=== PATIENT | male | born 1950 | race Caucasian/White ===

== ENCOUNTER 2018-03-06 11:26 | Emergency (ER) | payer OTHER, SELFPAY ==
[2018-03-06 11:27] VITALS: BP 153/57; PULSE 35; RESP 16; TEMP 36.9; O2SAT 95
[2018-03-06 11:45] VITALS: BP 185/80; PULSE 35; RESP 14; O2SAT 99
--- NOTE | 2018-03-06 11:47 | CT_ITS ---
STUDY: CT BRAIN WITHOUT CONTRAST REASON FOR EXAM: Male, 67 years old. Vertigo, headache, bradycardia RADIATION DOSAGE (If Supplied By Facility): CTDIvol = ( 60.81 ) mGy, DLP = ( 1044.28 ) mGycm TECHNIQUE: Transaxial CT imaging of the brain was performed without administration of intravenous contrast material. Sagittal and coronal reconstructed images are provided and reviewed. Individualized dose optimization techniques were used for this CT. COMPARISON: None. FINDINGS: Vascular calcifications are seen. Normal calvarium. Normal size ventricles and extra-axial spaces for the patient's age. Normal white matter tracts of the cerebral hemispheres. There are small punctate calcifications of the basal ganglia which are seen in the aging brain as a normal variant. Normal brainstem. Normal cerebellum. There is no intracranial hemorrhage. There are no findings of an acute ischemic infarction. Normal visualized paranasal sinuses. CT/Brain/Head without Contrast IMPRESSION: Chronic involutional changes. No acute intracranial abnormality. Electronically Signed: Derek Velasquez DO at 12:40 EDT Tel , Service support ,
--- NOTE | 2018-03-06 11:47 | EKG12_ITS ---
Test Reason : Blood Pressure : / mmHG Vent. Rate : 064 BPM Atrial Rate : 064 BPM P-R Int : 162 ms QRS Dur : 076 ms QT Int : 428 ms P-R-T Axes : 053 -24 027 degrees QTc Int : 441 ms Sinus rhythm with frequent Premature ventricular complexes Leftward axis Confirmed by JESSICA ENCARNACION, DAVIN ([id number]), field map editor MELLY NEGRO ([id number]) on 03/09/2018 9:49:48 AM Referred By: YENI Confirmed By:DAVIN LOPEZ MD
--- NOTE | 2018-03-06 11:47 | RAD_ITS ---
STUDY: X-RAY CHEST REASON FOR EXAM: Male, 67 years old. 3 day history of dizziness and palpitations. TECHNIQUE: Single AP portable view of the chest. COMPARISON: None. FINDINGS: EKG electrodes are seen. The lungs are clear and expanded. There is no demonstrated pleural abnormality. Normal size heart. Normal mediastinum and fatou. Normal visualized pulmonary arteries. Normal visualized aortic arch and descending thoracic aorta. There are diffuse degenerative changes of the visualized thoracic spine. Normal visualized ribs, clavicles, and shoulders. There is no demonstrated abnormality of the visualized soft tissue structures of the upper abdomen. RAD/Chest 1 View (Portable) IMPRESSION: No acute abnormality is seen. Electronically Signed: Didier Khan MD at 12:32 EDT Tel [phone], Service support ,
[2018-03-06] MEDS: 0.9% Normal Saline 1,000 ML 150 ML IV (12:01)
[2018-03-06 12:06] LABS: Absolute Lymphocyte Count 3.36 X10^3/ul (0.83-4.51); Basophil# 0.06 X10^3/uL; Basophil% 0.8 % (0-1); Eosinophil# 0.16 X10^3/uL; Eosinophils% 2.2 % (0-5); Hematocrit 47.2 % (40-54); Hemoglobin 16.6 g/dl (13.0-16.5); Lymphocyte # 3.36 X10^3/ul (4.0); Lymphocyte % 46.3 % (19-41); Mean Corp Hgb Conc 35.2 g/gl (32-36); Mean Corpuscular Hgb 31.6 pg (27.0-32.0); Mean Corpuscular Volume 89.9 fL (80-94); Mean Platelet Vol. 10.8 fl (6.2-12.0); Monocyte# 0.69 X10^3/uL; Monocyte% 9.5 % (0-10); Neutrophil # 2.99 X10^3/uL (2.7-7.7); Neutrophil % 41.2 % (47-70); Platelet Count 201 K/mm3 (150-450); RBC Distribution Width CV 13.7 % (11.6-14.6); RBC Distribution Width SD 44.3 fl (35.1-43.9); Red Blood Count 5.25 M/mm3 (4.6-6.2); White Blood Count 7.3 K/mm3 (4.4-11.0)
[2018-03-06 12:08] LABS: POSITIVE COUNT NO; POSITIVE DIFFERENTIAL NO; POSITIVE MORPHOLOGY NO
[2018-03-06 12:40] LABS: Anion Gap 10 (5-15); BUN 15 mg/dL (7-18); BUN/Creat Ratio 14.2 RATIO (10-20); Calcium,Total 8.9 mg/dL (8.5-10.1); Chloride 107 mmol/L (98-107); Creatinine, Serum 1.06 mg/dL (0.70-1.30); EST Glomerular Filtration Rate 74 mL/min (>60); Est Glom Filt Rate - Afr Amer 90 mL/min (>60); Estimated Creatinine Clearance 72.02 ml/min; Glucose 94 mg/dL (74-106); Magnesium 2.2 mg/dL (1.6-2.6); Potassium 4.8 mmol/L (3.5-5.1); Sodium Level 143 mmol/L (136-145); Thyroid Stim Hormone (TSH) 2.01 uIU/mL (0.358-3.74)
--- NOTE | 2018-03-06 13:08 | EKG12_ITS ---
Test Reason : Blood Pressure : / mmHG Vent. Rate : 067 BPM Atrial Rate : 067 BPM P-R Int : 156 ms QRS Dur : 080 ms QT Int : 458 ms P-R-T Axes : 050 -30 028 degrees QTc Int : 483 ms Sinus rhythm with frequent Premature ventricular complexes Left axis deviation Nonspecific ST abnormality Prolonged QT Abnormal ECG Confirmed by JESSICA ENCARNACION, DAVIN ([id number]), photo editor MELLY NEGRO ([id number]) on 03/09/2018 9:50:07 AM Referred By: YENI Confirmed By:DAVIN LOPEZ MD
[2018-03-06 13:27] VITALS: BP 160/80; PULSE 50; RESP 14; O2SAT 99
[2018-03-06] MEDS: Aspirin 81 MG TAB.CHEW 324 MG PO (13:39)
[2018-03-06 16:06] VITALS: BP 158/80; PULSE 55; RESP 14; O2SAT 99
--- NOTE | 2018-03-06 16:11 | ED.VISSUMM ---
- ER Visit Summary Date of Service: 03/06/18 Chief Complaint: Vertigo History of Present Illness: The patient is a [address] Jonathan Bah. He reports that over the past 2 days he has had episodes of vertigo when he rolls over in bed. This lasts for a few seconds at a time. He is nauseated with them and had dry heaves from a this morning. He denies any vertigo at this time. However, he does report that he is still nauseated. Patient was seen by Dr. Bah this morning and was found to have frequent PVCs. Patient denies any chest pain. He reports that 2 days ago he was in the shower and found that his left nipple was sore. He states this lasted approximately 1 day and had completely resolved. He denies any shortness of breath or diaphoresis. He states this was unchanged with exertion or deep breaths. He denies any chest pain with exertion or change in dyspnea exertion in the past month. Patient finally complains of a headache that is 3 out of 10 severity is generalized. He does have a history of similar headaches. He denies any numbness or weakness. Physical Examination: Vitals: Stable. Afebrile. General: Well-nourished and well-developed. Head: Normocephalic atraumatic. Neck: Supple, no lymphadenopathy. No JVD. Nontender. Cardiovascular: Bradycardic regular rhythm. No murmurs. Respiratory: No respiratory distress. Clear to auscultation bilaterally. Abdominal: Soft, nontender, nondistended, normal bowel sounds. No guarding, rebound, or peritoneal signs. Back: Nontender. Extremities: Nontender, no edema. Skin: Normal color, no rash. Neurologic: Alert and oriented ?3. Cranial nerves II through XII are intact. Normal strength and sensation. Psych: Normal affect. Test Results: EKG is sinus at [address] changes. Repeat EKG is unchanged. CBC is more for her hemoglobin is 16.6, segmented neutrophils 41, lymphs at 46. Chem-7 is normal. TSH is normal. Magnesium is normal. Initial troponin is 0.145. Repeat troponin [address] brain shows chronic changes. Chest x-ray is normal. Emergency Department Course and Treatment: Patient was treated with an aspirin. He did have episodes of bigeminy while here. However he had no runs of PVCs. Treatment Plan: Patient was discussed with Dr. Wolff who asked that a 3 hour troponin be obtained. I spoke with him again after this was obtained and he would like the patient discharged 24 hour Holter monitor and he will see him this week in the office. I had a prolonged discussion the patient that if he develops any chest pain or shortness of breath to return to emerge department for admission for further evaluation. He is happy with this plan. Disposition: To home in improved and stable condition. Impression: 1. PVCs. 2. Indeterminate troponin. 3. Vertigo, peripheral. This note was generated with [employer] dictation software. It may contain incorrect words, spelling, and punctuation that were not noted in review of the chart prior to signing ED Disposition - Plan for ED Patient: Disposition: Home or Assisted Living Chief Complaint: Dizziness Instructions: Premature Ventricular Contractions Referrals: Bc Wolff MD [STAFF PHYSICIAN] - 3-5 Days
[2018-03-06 16:24] VITALS: BP 131/74; PULSE 60; RESP 17
== END 2018-03-06 16:38 | disposition home or self-care (01) ==
PROVIDERS: Emergency Provider Emergency Medicine; Family Provider Pediatrics; PCP Family Medicine
DX: I49.3 Ventricular premature depolarization (principal); H81.399 Other peripheral vertigo, unspecified ear; R74.8 Abnormal levels of other serum enzymes; R11.2 Nausea with vomiting, unspecified; R07.9 Chest pain, unspecified; R51 Headache; Z79.82 Long term (current) use of aspirin; Z79.899 Other long term (current) drug therapy
CPT/HCPCS: 70450; 71045; 80048; 83735; 84443; 84484; 85025; 93005; 93225; 93226; 96360; 96361; 99285; J7030; A4216

== ENCOUNTER → 2018-03-06 16:16 | Outpatient (CLI) | payer OTHER, SELFPAY | PROVIDERS: Family Provider Pediatrics; PCP Family Medicine; Visit Provider Emergency Medicine | DX: I49.3 Ventricular premature depolarization (principal) | CPT/HCPCS: 93225; 93226 ==

== ENCOUNTER → 2018-03-27 06:00 | Outpatient (CLI) | payer OTHER, SELFPAY ==
--- NOTE | 2018-03-27 09:11 | STRESSREP ---
Stress Test Report Exercise myocardial perfusion stress test. 67-year-old man with a history of chest pain. Medications: Simvastatin and beta-betty. Stress protocol: Resting EKG demonstrates sinus bradycardia with a rate of 56 bpm. Resting blood pressure is 150/88 mmHg. The patient also was noted to have occasional premature ventricular complexes. The patient exercised according to the regular Haroldo protocol for total duration of 8 minutes and 45 seconds completing 2 minutes and 45 seconds to stage III of the Haroldo protocol. The maximum heart rate attained was 136 bpm which was 88% of maximum predicted heart rate the maximum workload was 10.1 metabolic equivalents. At rest there were no ST or T-wave changes noted suggest ischemia peak exercise no ST or T-wave changes were noted suggest ischemia. No clinical angina was noted the test was terminated due to leg fatigue. The resting blood pressure is 150/88 with a peak blood pressure of 218/94 rate pressure product was 29,200. Myocardial perfusion protocol. 14.3 mCi of technetium 99m sestamibi was injected at rest. The patient exercised according to regular Haroldo protocol for 8 minutes 45 seconds and at peak exercise 44.6 mCi of technetium 99m sestamibi was injected stress images were obtained stress and rest images were reconstructed and compared in the short axis vertical long and horizontal long axis. Gated images were also obtained. Perfusion SPECT analysis: Review of the stress images demonstrate normal uptake of tracer noted in all areas of the myocardium. The resting images similarly demonstrate normal uptake of tracer noted in all areas of the myocardium. No areas of reversibility are noted suggest ischemia and no previous infarct is noted. Gated SPECT analysis: The gated ejection fraction is noted to be 64%. Conclusion: Normal exercise myocardial perfusion stress test at a high workload. Preserved ejection fraction. Good functional aerobic capacity.
== END ==
PROVIDERS: Family Provider Pediatrics; PCP Family Medicine; Visit Provider Internal Medicine Cardiovascular Disease
DX: I49.49 Other premature depolarization (principal); R00.2 Palpitations; R07.9 Chest pain, unspecified
CPT/HCPCS: 78452; 93017; 93306; A9500; A4216

== ENCOUNTER → 2018-04-27 10:25 | Outpatient (CLI) | payer OTHER, SELFPAY ==
[2018-04-27 10:32] LABS: Bacteria 0 SEEN /hpf (None Seen); Mucous, Urine 0 SEEN /hpf (<or=2+); Red Blood Cells-Urine 0 SEEN /hpf (0-5); White Blood Cells 0 SEEN /hpf (0-5)
[2018-04-27 10:35] LABS: Color, Urine Yellow (Yellow); Glucose, Dipstick Normal (Normal); Ketone-Dipstick Negative (Negative); Leukocyte Esterase-Dipstick Negative /ul (Negative); Nitrite-Dipstick Negative (Negative); Occult Blood-Urine 25 /ul (Negative); Protein-Dipstick Negative (Negative); Specific Gravity, Urine 1.025 (1.002-1.030); Urine Bilirubin Dipstick Negative (Negative); Urine Clarity Clear (Clear); Urine Urobilinogen 1 mg/dl (Normal)
[2018-04-27 10:42] LABS: Squamous Epithelial Cells - UA 0-5 SEEN /hpf (0-5)
== END ==
PROVIDERS: Visit Provider Family Medicine
DX: R82.99 Other abnormal findings in urine (principal)
CPT/HCPCS: 81001

== ENCOUNTER → 2018-04-28 08:12 | Outpatient (CLI) | payer OTHER, SELFPAY ==
[2018-04-28 10:56] LABS: AST(SGOT) 67 U/L (15-37); Alanine Aminotransfer ALT/SGPT 187 U/L (16-61); Albumin, Serum 3.7 g/dL (3.2-5.0); Alkaline Phosphatase 87 U/L (45-117); Anion Gap 10 (5-15); BUN 16 mg/dL (7-18); CPK Total, Creatine Kinase 275 U/L (39-308); Calcium,Total 8.5 mg/dL (8.5-10.1); Chloride 111 mmol/L (98-107); Cholesterol 128 mg/dL (200); Creatinine, Serum 1.07 mg/dL (0.70-1.30); EST Glomerular Filtration Rate 73 mL/min (>60); Est Glom Filt Rate - Afr Amer 89 mL/min (>60); Ferritin 234 ng/mL (26-388); Globulin 3.6 g/dL (2.2-4.2); Glucose 90 mg/dL (74-106); High Density Lipoprotein 33 mg/dL; Magnesium 2.3 mg/dL (1.6-2.6); Potassium 4.4 mmol/L (3.5-5.1); Protein, Total 7.3 g/dL (6.4-8.2); Sodium Level 142 mmol/L (136-145); Triglycerides 108 mg/dL; Very Low Density Lipoprotein 22 mg/dL (5-40)
== END ==
PROVIDERS: Family Medicine; Family Provider Family Medicine; PCP Family Medicine; Visit Provider Family Medicine
DX: E78.00 Pure hypercholesterolemia, unspecified (principal); R25.2 Cramp and spasm
CPT/HCPCS: 36415; 80053; 80061; 82550; 82728; 83735

== ENCOUNTER → 2018-08-29 08:45 | Outpatient (CLI) | payer OTHER, SELFPAY ==
[2018-08-29 10:47] LABS: AST(SGOT) 31 U/L (15-37); Alanine Aminotransfer ALT/SGPT 54 U/L (16-61); Alkaline Phosphatase 71 U/L (45-117); Bilirubin, Direct 0.19 mg/dL (0.00-0.30); Cholesterol 227 mg/dL (200); Globulin 3.1 g/dL (2.2-4.2); High Density Lipoprotein 34 mg/dL; PSA,Total - Annual Screen 0.37 ng/mL (0.00-4.00); Protein, Total 7.1 g/dL (6.4-8.2); Triglycerides 218 mg/dL; Very Low Density Lipoprotein 44 mg/dL (5-40)
--- OUTSIDE RECORDS SUMMARY | 2018-10-31 09:08 | XMS RPT_ITS ---
:1950 Author Organization OHIP Support Name Relationship Address Phone COW Unavailable [address] + [place] [address] PETTORINI, ZEE Unavailable [address] + [place] [address] COW Unavailable [address] + [place] [address] PETTORINI, ZEE Unavailable [address] + [place] [address] COW Unavailable [address] + [place] [address] PETTORINI, ZEE Unavailable [address] + [place] [address] + [place] [address] PETTORINI, ZEE Unavailable [address] + [place] [address] + [place] [address] PETTORINI, ZEE Unavailable [address] + [place] [address] + [place] [address] PETTORINI, ZEE Unavailable [address] + [place] [address] + [place] [address] PETTORINI, ZEE Unavailable [address] + [place] [address] + [place] [address] PETTORINI, ZEE Unavailable [address] + [place] [address] + [place] [address] PETTORINI, ZEE Unavailable [address] + [place] [address] + [place] [address] PETTORINI, ZEE Unavailable [address] + [place] [address] [address]OW Un[address] + [place] [address] PETTORINI, ZEE Unavailable [address] + [place] [address] + [place] [address] PETTORINI, ZEE Unavailable [address] + [place] [address] Care Team Providers Name Role Phone Jonathan Negro Attending Unavailable Olvin, Jonathan Primary Care Unavailable Negro, Vi Primary Care Unavailable Alejo Lafleur Attending Unavailable Alejo Lafleur Attending Unavailable Mariella, Freeland Referring Unavailable Negro, Vi Primary Care Unavailable Jeanine Martinez Attending Unavailable Jeanine Martinez Attending Unavailable Mariella, Freeland Attending Unavailable Jonathan Negro Referring Unavailable Negro, Vi Primary Care Unavailable Mariella, Freeland Attending Unavailable Mariella, Freeland Referring Unavailable Negro, Vi Primary Care Unavailable Mariella, Freeland Attending Unavailable Olvin, Jonathan Referring Unavailable Mariella, Bc Attending Unavailable Mariella, Freeland Attending Unavailable Mariella, Bc Referring Unavailable Jonathan Alfred Attending Unavailable Joanthan Alfred Referring Unavailable Jonathan Negro Attending Unavailable Olvin, Jonathan Primary Care Unavailable PROBLEMS PROBLEMS DATE TYPE CONDITION / CODE ATTENDING STATUS SOURCE 05/10/2018 Unknown E78.00 - Pure Jonathan Negro Active [facility] , unspecified / Hospital E78.00(ICD-10) Repository 04/27/2018 Unknown R82.99 - Other Jonathan Alfred Active [place] abnormal findings in E Community urine / Hospital R82.99(ICD-10) Repository 03/27/2018 Unknown I49.49 - Other Christophe Wolffril Active [facility] premature Community depolarization / Hospital I49.49(ICD-10) Repository 04/25/2018 Unknown R07.9 - Chest pain, Christophe Wolffril Active [facility] unspecified / Community R07.9(ICD-10) Hospital Repository 03/08/2018 Unknown R74.8 - Abnormal Mariella, Freeland Active [facility] levels of other Community serum enzymes / Hospital R74.8(ICD-10) Repository 06/23/2018 Unknown R42 - Dizziness and MiquelAlejo Active [place] giddiness / Community R42(ICD-10) Hospital Repository 04/04/2018 Unknown R00.2 - Palpitations MariellaChristophe freedmanril Active [place] / R00.2(ICD-10) [facility]ly [facility] Repository PROCEDURES PROCEDURES No Procedure Records FoundRESULTS RESULTS LIVER PROFILE Collected: 08/29/2018 Status: F Source: [place] 8:45 AM [facility] REPOSITORY TYPE CODE TESTS RESULT OUT OF RANGE REFERENCE UNITS LAB L501.1500 6.4-8.2 g/dL Normal T PROT 7.1 LAB L501.1800 3.2-5.0 g/dL Normal ALB 4.0 LAB L501.1950 2.2-4.2 g/dL Normal GLOB 3.1 LAB L501.4100 15-37 U/L Normal AST 31 LAB L501.4305 45-117 U/L Normal ALK P 71 LAB L501.4405 16-61 U/L Normal ALT 54 LAB L501.4600 0.20-1.00 mg/dL Normal T BILI 0.70 LAB L501.4700 0.00-0.30 mg/dL Normal D BILI 0.19 Performed By: #### L500.3400, L500.4100, L501.9910 #### [facility] [address] [place], [place], [id number] LIPID PROFILE Collected: 08/29/2018 Status: F Source: [place] 8:45 AM [facility] REPOSITORY TYPE CODE TESTS RESULT OUT OF RANGE REFERENCE UNITS LAB L501.4900 200 mg/dL High CHOL 227 Result Comment: <200 mg/dL Desirable 200-240 mg/dL Borderline >240 mg/dL High Risk LAB L501.5000 mg/dL High TRIG 218 Result Comment: The drugs N-Acetylcysteine and Metamizole may falsely depress this assay. Serum Triglycerides Reference Interval Normal <150 mg/dL Borderline high 150 - 199 mg/dL High 200 - 499 mg/dL Very High > or = 500 mg/dL LAB L501.6400 mg/dL Low HDL 34 Result Comment: The drugs N-Acetylcysteine and Metamizole may falsely depress this assay. Reference Range HDL <40 mg/dL Low HDL Cholesterol HDL >or= 60 mg/dL High HDL Cholesterol LAB L501.6500 0-130 mg/dL High LDL 149 LAB L501.6600 5-40 mg/dL High VLDL 44 Performed By: #### L500.3400, L500.4100, L501.9910 #### [facility] [address] [place], [address] PSA,TOTAL - ANNUAL Collected: 08/29/2018 Status: F Source: [place] SCREEN 8:45 AM [facility] REPOSITORY TYPE CODE TESTS RESULT OUT OF RANGE REFERENCE UNITS LAB L501.9910 0.00-4.00 ng/mL Normal PSA,TOT 0.37 SCREEN Result Comment: This test was performed using the TPSA assay method for the iconDial chemistry system. Values obtained with different assay methods cannot be used interchangably. When changing PSA assays in the course of monitoring a patient, additional sequential testing should be carried out to confirm baseline values. Performed By: #### L500.3400, L500.4100, L501.9910 #### [facility] [address] [place], [address] COMPREHENSIVE METABOLIC Collected: 04/28/2018 Status: F Source: [place] PROFIL 8:14 AM [facility] REPOSITORY Order Comment: Order Date: 04/27/18 Order Info: [id number] - CMP Order Info: [id number] - LIPID Order Info: 2157-6 - CPK Order Info: [id number] - MG Order Info: 2276-4 - JENNYFER TYPE CODE TESTS RESULT OUT OF RANGE REFERENCE UNITS LAB L501.0100 74-106 mg/dL Normal GLU 90 Result Comment: Please note revised GLUCOSE reference range effective 2017. LAB L501.1000 7-18 mg/dL Normal BUN 16 LAB L501.1100 0.70-1.30 mg/dL Normal CREAT,SERUM 1.07 Result Comment: The validity of the calculated GFR AND GFRAA in patients over 70 years has not been determined. Clinical correlation is essential. LAB L501.1110 >60 mL/min Normal EST GFR 73 Result Comment: Non- GFR Calc LAB L501.1115 >60 mL/min Normal EST GFR - AA 89 Result Comment: GFR Calc LAB L501.1300 10-20 RATIO Normal BUN/CRE 15.0 LAB L501.1500 6.4-8.2 g/dL T Normal PROT 7.3 LAB L501.1800 3.2-5.0 g/dL Normal ALB 3.7 LAB L501.1950 2.2-4.2 g/dL Normal GLOB 3.6 LAB L501.2000 0.9-2.4 RATIO Normal A/G 1.0 LAB L501.2200 8.5-10.1 mg/dL CA Normal 8.5 LAB L501.4100 15-37 U/L High AST 67 Result Comment: Slight Hemolysis, Result may be falsely increased. LAB L501.4305 45-117 U/L Normal ALK P 87 LAB L501.4405 16-61 U/L High ALT 187 LAB L501.4600 0.20-1.00 mg/dL High T BILI 1.20 LAB L501.5300 136-145 mmol/L Normal NA 142 LAB L501.5600 3.5-5.1 mmol/L Normal K 4.4 Result Comment: Slight Hemolysis, Result may be falsely increased. LAB L501.5900 98-107 mmol/L High CL 111 LAB L501.6100 21.0-32.0 mmol/L Normal CO2 21.0 LAB L501.6200 5-15 Normal GAP 10 Performed By: #### L500.4050, L500.4100, L501.3620, L501.5200, L503.6550 #### [facility] [address] [place], [place], [address] LIPID PROFILE Collected: 04/28/2018 Status: F Source: [place] 8:14 AM [facility] REPOSITORY Order Comment: Order Date: 04/27/18 Order Info: [id number] - CMP Order Info: [id number] - LIPID Order Info: 2156 - CPK Order Info: [id number] - MG Order Info: 2276-4 - JENNYFER TYPE CODE TESTS RESULT OUT OF RANGE REFERENCE UNITS LAB L501.4900 200 mg/dL Normal CHOL 128 Result Comment: <200 mg/dL Desirable 200-240 mg/dL Borderline >240 mg/dL High Risk LAB L501.5000 mg/dL Normal TRIG 108 Result Comment: The drugs N-Acetylcysteine and Metamizole may falsely depress this assay. Serum Triglycerides Reference Interval Normal <150 mg/dL Borderline high 150 - 199 mg/dL High 200 - 499 mg/dL Very High > or = 500 mg/dL LAB L501.6400 mg/dL Low HDL 33 Result Comment: The drugs N-Acetylcysteine and Metamizole may falsely depress this assay. Reference Range HDL <40 mg/dL Low HDL Cholesterol HDL >or= 60 mg/dL High HDL Cholesterol LAB L501.6500 0-130 mg/dL Normal LDL 73 LAB L501.6600 5-40 mg/dL Normal VLDL 22 Performed By: #### L500.4050, L500.4100, L501.3620, L501.5200, L503.6550 #### [facility] [address] [place], [place], [address] CPK TOTAL, CREATINE Collected: 04/28/2018 Status: F Source: [place] KINASE 8:14 AM [facility] REPOSITORY Order Comment: Order Date: 04/27/18 Order Info: [id number] - CMP Order Info: [id number] - LIPID Order Info: [id number] - CPK Order Info: [id number] - MG Order Info: 2276-4 - JENNYFER TYPE CODE TESTS RESULT OUT OF RANGE REFERENCE UNITS LAB L501.3620 39-308 U/L Normal CPK TOTAL 275 Performed By: #### L500.4050, L500.4100, L501.3620, L501.5200, L503.6550 #### [facility] [address] [place], [place], [id number] MAGNESIUM Collected: 04/28/2018 Status: F Source: [place] 8:14 AM [facility] REPOSITORY Order Comment: Order Date: 04/27/18 Order Info: [id number] - CMP Order Info: [id number] - LIPID Order Info: 2157-6 - CPK Order Info: [id number] - MG Order Info: 2276-4 - JENNYFER TYPE CODE TESTS RESULT OUT OF RANGE REFERENCE UNITS LAB L501.5200 1.6-2.6 mg/dL Normal MG 2.3 Result Comment: Slight Hemolysis, Result may be falsely increased. Performed By: #### L500.4050, L500.4100, L501.3620, L501.5200, L503.6550 #### [facility] [address] [place], [address] FERRITIN Collected: 04/28/2018 Status: F Source: [place] 8:14 AM [facility] REPOSITORY Order Comment: Order Date: 04/27/18 Order Info: [id number] - CMP Order Info: [id number] - LIPID Order Info: 2157-6 - CPK Order Info: 44802-2 - MG Order Info: 2276-4 - JENNYFER TYPE CODE TESTS RESULT OUT OF RANGE REFERENCE UNITS LAB L503.6550 26-388 ng/mL Normal FERRITIN 234 Performed By: #### L500.4050, L500.4100, L501.3620, L501.5200, L503.6550 #### [facility] [address] [place], [place], [address] URINALYSIS, COMPLETE Collected: 04/27/2018 Status: F Source: [place] 8:15 AM [facility] REPOSITORY Order Comment: How was Urine Obtained? CLEAN CATCH TYPE CODE TESTS RESULT OUT OF RANGE REFERENCE UNITS LAB L400.3000 Yellow COLOR Normal Yellow LAB L400.3050 Clear Normal CLARITY Clear LAB L400.3200 Normal mg/dl Normal GLUCOSE, UR Normal LAB L400.3300 Negative mg/dL Normal BILIRUBIN URINE Negative LAB L400.3400 Negative mg/dl Normal KETONE UR Negative LAB L400.3465 1.002-1.030 Normal SP.GR. DIPSTX 1.025 LAB L400.3550 5.0 - 8.0 pH UR Normal 5.0 LAB L400.3600 Negative mg/dl PROT Normal DIPSTX Negative LAB L400.3700 Normal mg/dl High 1 UROBILI LAB L400.3750 Negative Normal NITRITE UR Negative LAB L400.3780 Negative /ul High 25 OCCULT BLOOD-UR LAB L400.3800 Negative /ul LEUK Normal ESTERASE Negative LAB L400.4050 0-5 /hpf WBC 0 Normal SEEN LAB L400.4100 0-5 /hpf 0 Normal RBC-UA SEEN LAB L400.4150 0-5 /hpf SQUAM Normal EPI 0-5 SEEN LAB L400.4300 None Seen /hpf 0 Normal BACTERIA SEEN LAB L400.4350 <or=2+ /hpf 0 Normal MUCUS, URINE SEEN Performed By: #### L400.0001 #### [facility] [address], [address] CARDIOLOGY VISIT Observed: 04/20/2018 Status: F Source: [place] REPORT 10:17 AM [facility] REPOSITORY [facility] [address] [place] [address] OFFICE VISIT Date of Service: 04/20/18 MR#: [id number] Acct: [id number] Name: DELICIA SEGURA Rep #: [id number] : 1950 Provider: Bc Wolff MD Age/Sex: 67/M Location: [facility] [place] Status: Signed HPI HPI Chief Complaint: Follow up Details: DELICIA SEGURA, is a 67 M who presents to the office today for a follow-up visit. He is a gentleman who had initially presented with evidence of ventricular bigeminy and premature ventricular complexes and was also noted to have minimally abnormal troponin. He underwent stress testing which demonstrated no evidence of ischemia at a high workload, an echocardiogram was performed which demonstrated preserved ejection fraction. He also had a 24-hour Holter monitor placed which demonstrated 16% isolated ventricular ectopic beats. He was put on low-dose beta-betty and appears to be tolerating it well especially in face of his preserved ejection fraction of 60%. He has had no neck arm or jaw discomfort suggest angina no dizziness or diaphoresis no near syncope or syncope. His physical exam today demonstrates clear lung hernadez regular rate and rhythm and no pedal edema. Intake Vital Signs04/20/18 Height 5 ft 11 in 04/20/18 Weight: 218 lb 04/20/18 Body Mass Index (BMI) 30.4 04/20/18 Blood Pressure 124/64 04/20/18 Blood Pressure Location Lt brachial Intake Visit Reasons: 6 wk f/up Law Tutor Required: No Accompanied by: none Is patient in pain?: No Allergies No Known Allergies Allergy (Verified 04/20/18 10:04) Medications Aspirin [Aspirin, Baby] 81 mg PO DAILY@0800 02/18/14 [History Confirmed 04/20/18] Simvastatin [Zocor] 20 mg PO QHS 02/18/14 [History Confirmed 04/20/18] fluticasone 50 mcg/actuation nasal spray,suspension 2 spray INTRANASAL QDAY PRN 03/08/18 [History Confirmed 04/20/18] metoprolol succinate ER 25 mg tablet,extended release 24 hr 25 mg PO QDAY #90 tab 03/08/18 [Rx Confirmed 04/20/18] omeprazole 20 mg capsule,delayed release 20 mg PO QDAY 03/08/18 [History Confirmed 04/20/18] PFSH Medical History Hyperlipidemia (Chronic) GERD (gastroesophageal reflux disease) (Acute) Erectile dysfunction (Chronic) Surgical History History of arthroplasty of left knee (Resolved) Family History Mother CAD (coronary artery disease) CABG late 60's Brother Heart disease PPM for Atrial Fib Hypertension Social History Smoking Status: Never smoker ROS Const Const: Negative for fatigue, weakness, night sweats, excessive sweating, frequent falls, headache(s) or daytime sleepiness Eyes Eyes: Negative for loss of peripheral vision, transient loss of vision, blind spots, double vision or blurry vision ENT ENT: Negative for headache(s), dizziness, balance problems, Nosebleed/epistaxis, tongue swelling or lip swelling Cardio Chest Pain: No Palpitations: No Edema: None Muscle aches with walking: None Resp Respiratory: Negative for SOB at rest, SOB orthopnea\SOB lying down, Cough, paroxysmal nocturnal dyspnea or SOB with activity GI GI: Negative nausea, vomiting, heartburn, black,tarry stools or bright, red blood in stools : Negative for hematuria Musc Musc: Negative for balance problems, muscle aches/ myalgia, muscle weakness or joint pain Skin Skin: Negative non-healing lesions, unusual bruising or rash Neuro Neuro: Negative for weakness, frequent falls, headache(s), double vision, dizziness, lightheadedness, orthostatic symptoms, blurry vision or lack of coordination Melquiades Hematologic/Lymphatic: Negative for easy bruising or easy bleeding Endo Endo: Negative for fatigue, excessive sweating, cold intolerance, heat intolerance, increased thirst/drinking or hair loss Psych Psych: Negative for anxiety or depression Allergy Allergy/Immunology: Negative for throat swelling, Negative for tongue swelling, Negative for hives, Negative for rash, Negative for lip swelling Cardiology Exam Const Appearance: cooperative, healthy appearing, well developed, well groomed and no acute distress Nutritional Appearance: well nourished and average body habitus Orientation: alert, awake and oriented x3 Head Head: normal to inspection, normocephalic and atraumatic Ears: hearing grossly normal bilaterally and external ears normal Nose: external nose normal, nasal mucous membranes and turbinates normal, nares normal, septum normal, no nasal discharge Face and Sinus: face symmetric Mouth: oral mucosae normal, tongue normal, oropharynx normal and moist mucous membranes Teeth and gingiva: dentition normal Throat: posterior oropharynx normal, tonsils normal and uvula midline Eyes General: appearance normal, both eyes and all related structures Eyelids: eyelids normal Conjunctivae: conjunctivae normal Pupils: PERRL, normal by confrontation and accommodation normal EOM: EOM intact bilaterally Neck Neck: normal visual inspection, trachea midline and no JVD JVD: +5 Carotids: normal carotid upstroke and bounding pulses Chest Chest inspection: normal inspection of the chest, symmetric chest movement and normal respiratory effort Auscultation: Bilateral: Clear to Auscultation Cardio Palpation: normal PMI Rate: regular rate Rhythm: regular rhythm Heart sounds: S1 normal, S2 normal and normal, physiologic split S2; negative rub, gallop or murmur GI GI: normal to inspection, soft, no hepatosplenomegaly and bowel sounds present Neuro General: alert, awake, oriented x3, no focal sensory deficit, gait normal and moves all extremities Skin Skin: no rashes or lesions noted Extremities Pulses: Normal: Right Femoral Pulse, Left Femoral Pulse, Right Dorsalis Pedis Pulse, Left Dorsalis Pedis Pulse, Right Posterior Tibial Pulse, Left Posterior Tibial Pulse, Right Radial Pulse, Left Radial Pulse Lower Extremity Edema: None: Bilateral Musculoskel Musculoskeletal: No joint tenderness Psych Psychological: normal affect Assessment AND Plan 1. Nonsustained paroxysmal ventricular tachycardia I47.2 Plan He does have a history of nonsustained ventricular tachyarrhythmia but with a preserved ejection fraction he will be maintained on the beta-betty with no changes. 2. Pure hypercholesterolemia E78.00; E78.0 Plan He has a history of mild hyperlipidemia and will continue with risk factor modification with his low intensity statin. Routine lipid profile should be obtained through your office. 3. Multiple premature ventricular complexes I49.49 Plan The premature ventricular complexes appear to have abated currently on the beta-betty and no other changes will be advocated. Thank you for allowing me to participate in the care of your patient. 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) Coding Level of Care Code Off vis,est,level 3 Diagnoses Nonsustained paroxysmal ventricular tachycardia I47.2 Pure hypercholesterolemia E78.00; E78.0 Hyperlipidemia type: pure hypercholesterolemia Multiple premature ventricular complexes I49.49 Coding Level of Care Code Off vis,est,level 3 Diagnoses Nonsustained paroxysmal ventricular tachycardia I47.2 Pure hypercholesterolemia E78.00; E78.0 Hyperlipidemia type: pure hypercholesterolemia Multiple premature ventricular complexes I49.49 04/20/18 1017 <Electronically signed by Bc Wolff MD> Date Bc Wolff MD Cosigner Signature: Date (if applicable) CC: Jonathan Negro MD ECHOCARDIOGRAM COMPLETE Observed: 03/27/2018 Status: F Source: [place] 9:58 AM [facility] REPOSITORY [facility] [place] [address] Echo Complete 03/27/18 0810 MR#: [id number] Acct: [id number] Name: DELICIA SEGURA Rep #: [id number] : 1950 67 From: Bc Wolff MD Attending Dr: Mariella ENCARNACION,Bc Status: REG CLI Ordering Dr: Bc Wolff MD Date: 03/27/18 Location: [facility] Sex: M C Admitted: Reason For Study: Chest Pain Procedure This was a 2D Doppler, Color Flow transthoracic echocardiogram. Exam performed in department. Left Ventricle Normal LV size. Left ventricular systolic function is normal. The estimated ejection fraction is 60 %. Transmitral diastolic flow velocities suggest mild (stage 1) diastolic dysfunction (reversed pattern). No regional wall motion abnormalities noted. Right Ventricle Normal RV size. Normal systolic function. Atria Normal left atrium. Normal right atrium. Mitral Valve Normal mitral valve. Mild (1+) eccentric mitral valve insufficiency. Tricuspid Valve Normal tricuspid valve. Mild (1+) tricuspid valve insufficiency. Pulmonary artery systolic pressure is 31 mmHg. Aortic Valve Normal aortic valve. Pulmonic Valve Normal pulmonic valve. Great Vessels Normal aortic root. The pulmonary artery is normal size. Normal inferior vena cava. Pericardium/Pleural No pericardial effusion. MMode/2D Measurements AND Calculations LVIDd: 5.0 cm IVSd: 1.1 cm Ao root diam: 3.2 cm LVIDs: 3.1 cm LVPWd: 0.96 cm RVDd: 3.1 cm FS: 37.3 % LAV(MOD-bp): 64.9 ml EDV(MOD-sp4): 82.6 ml SV(MOD-sp4): 48.7 ml LAV(MOD-bp) Indexed: 29.8 ml/m2 ESV(MOD-sp4): 33.9 ml LAV(MOD-sp2): 76.2 ml EF(MOD-sp4): 59.0 % LAV(MOD-sp4): 46.4 ml LA A4 area: 19.6 cm2 RA A4 area: 17.3 cm2 Doppler Measurements AND Calculations MV E max ector: 72.9 cm/sec Lat Peak E' Ector: 10.3 cm/sec Med Peak E' Ector: 7.6 cm/sec MV A max ector: 76.7 cm/sec E/E' lat: 7.1 E/E' med: 9.6 MV E/A: 0.95 Ao V2 max: 128.2 cm/sec LV V1 max: 125.6 cm/sec PA V2 max: 88.4 cm/sec Ao max P.6 mmHg LV V1 max P.3 mmHg Ao V2 mean: 93.0 cm/sec Ao mean P.8 mmHg Ao V2 VTI: 29.3 cm TR max ector: 261.4 cm/sec TR max P.3 mmHg Interpretation Summary Normal LV size. Left ventricular systolic function is normal. The estimated ejection fraction is 60 %. Transmitral diastolic flow velocities suggest mild (stage 1) diastolic dysfunction (reversed pattern). Mild (1+) eccentric mitral valve insufficiency. Ordering Physician: Bc Wolff Referring Physician: Jonathan Negro Performed By: Bettina Aleman, SARI, RVT 03/27/18 0957 Date Bc Wolff MD CC: Bc Wolff MD; Jonathan Negro MD; Vi Negro MD Date Dictated: 03/27/18809 Date Transcribed: 03/27/18956 V Belt [employer] As[employer]er [employer]: Signed STRESS REPORT Observed: 03/27/2018 Status: F Source: [place] 9:17 AM [facility] REPOSITORY [facility] Cardiovascular Services [address] [place] [id number] MR#: [id number] Acct: [id number] Name: DELICIA SEGURA Rep #: [id number] : 1950 67 From: Bc Wolff MD Primary Care: Jonathan Negro MD Status: REG CLI Ordering Dr: Gerard: Nick La Stress Test Report Exercise myocardial perfusion stress test. 67-year-old man with a history of chest pain. Medications: Simvastatin and beta-betty. Stress protocol: Resting EKG demonstrates sinus bradycardia with a rate of 56 bpm. Resting blood pressure is 150/88 mmHg. The patient also was noted to have occasional premature ventricular complexes. The patient exercised according to the regular Haroldo protocol for total duration of 8 minutes and 45 seconds completing 2 minutes and 45 seconds to stage III of the Haroldo protocol. The maximum heart rate attained was 136 bpm which was 88% of maximum predicted heart rate the maximum workload was 10.1 metabolic equivalents. At rest there were no ST or T-wave changes noted suggest ischemia peak exercise no ST or T-wave changes were noted suggest ischemia. No clinical angina was noted the test was terminated due to leg fatigue. The resting blood pressure is 150/88 with a peak blood pressure of 218/94 rate pressure product was 29,200. Myocardial perfusion protocol. 14.3 mCi of technetium 99m sestamibi was injected at rest. The patient exercised according to regular Haroldo protocol for 8 minutes 45 seconds and at peak exercise 44.6 mCi of technetium 99m sestamibi was injected stress images were obtained stress and rest images were reconstructed and compared in the short axis vertical long and horizontal long axis. Gated images were also obtained. Perfusion SPECT analysis: Review of the stress images demonstrate normal uptake of tracer noted in all areas of the myocardium. The resting images similarly demonstrate normal uptake of tracer noted in all areas of the myocardium. No areas of reversibility are noted suggest ischemia and no previous infarct is noted. Gated SPECT analysis: The gated ejection fraction is noted to be 64%. Conclusion: Normal exercise myocardial perfusion stress test at a high workload. Preserved ejection fraction. Good functional aerobic capacity. 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 Rate : 064 BPM Atrial Rate : 064 BPM P-R Int : 162 ms QRS Dur : 076 ms QT Int : 428 ms P-R-T Axes : 053 -24 027 degrees QTc Int : 441 ms Sinus rhythm with frequent Premature ventricular complexes Leftward axis Confirmed by JESISCA ENCARNACION, ABUNDIO ([id number]), editor in chief MELLY NEGRO ([id number]) on 03/09/2018 9:49:48 AM Referred By: MIQUEL Confirmed By:ABUNDIO LOPEZ MD 03/09/18 0949 Date Abundio Lopez MD CC: Jonathan Negro MD; Vi Negro MD; Alejo Lafleur MD Signed 12 LEAD ELECTROCARDIOGRAM Observed: 03/09/2018 Status: F Source: [place] 9:50 AM [facility] REPOSITORY [facility] Cardiovascular Services [address] [place] [address] 12 Lead EKG 03/06/18 1533 MR#: [id number] Acct: [id number] Name: DELICIA SEGURA Rep #: [id number] : 1950 67 From: Abundio Lopez MD Attending Dr: Status: DEP ER Ordering Dr: Alejo Lafleur MD Date: 03/06/18 Location: ED Sex: M C Admitted: Test Reason : Blood Pressure : / mmHG Vent. Rate : 067 BPM Atrial Rate : 067 BPM P-R Int : 156 ms QRS Dur : 080 ms QT Int : 458 ms P-R-T Axes : 050 -30 028 degrees QTc Int : 483 ms Sinus rhythm with frequent Premature ventricular complexes Left axis deviation Nonspecific ST abnormality Prolonged QT Abnormal ECG Confirmed by JESSICA ENCARNACION, ABUNDIO ([id number]), editor in chief MELLY NEGRO ([id number]) on 03/09/2018 9:50:07 AM Referred By: MIQUEL Confirmed By:ABUNDIO LOPEZ MD 03/09/18 0950 Date Abundio Lopez MD CC: Jonathan Negro MD; Vi Negro MD; Alejo Lafleur MD Signed CARDIOLOGY VISIT Observed: 03/08/2018 Status: F Source: [place] REPORT 2:29 PM [facility] REPOSITORY [facility] [address] [place] [address] OFFICE VISIT Date of Service: 03/08/18 MR#: [id number] Acct: [id number] Name: DELICIA SEGURA Rep #: [id number] : 1950 Provider: Bc Wolff MD Age/Sex: 67/M Location: [facility] Status: Signed HPI HPI Chief Complaint: Initial visits. Details: DELICIA SEGURA, is a 67 M who presents to the office today for an initial visit. He is a pleasant gentleman otherwise active who says that he had been experiencing some headaches including nausea vomiting and photophobia presented to his primary physician with the above. Blood pressure was noted to be normal but he was concerned about increasing amount of headaches that he was having. He was also noted to have an abnormal pulse rate with an EKG demonstrating evidence of ventricular bigeminy. He was sent to the emergency room he was noted to have frequent premature ventricular complexes. An EKG done demonstrated normal sinus rhythm with rate of [address]-T wave changes troponin was noted to be minimally abnormal at 0.145 and a repeat troponin of 0.150. The ER did talk to me and at that time I felt that the EKGs was benign and the troponin did not have a rise and fall and medical therapy was recommended. He was discharged he did have some sedation of the headache and his nausea has also improved. He actually does not feel any of this irregular heartbeat. A 24-hour Holter monitor was placed which demonstrated a average heart rate of 62 bpm and minimum of 47 bpm and a maximum 114 bpm in sinus rhythm. Occasional isolated ventricular ectopic complexes were noted comprising 16% of the total QRS complex. His physical exam today demonstrates clear lung hernadez regular rate and rhythm and no pedal edema. 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 Allergies No Known Allergies Allergy (Verified 03/08/18 13:30) Medications Aspirin [Aspirin, Baby] 81 mg PO DAILY@0800 02/18/14 [History Confirmed 03/08/18] Simvastatin [Zocor] 20 mg PO QHS 02/18/14 [History Confirmed 03/08/18] fluticasone 50 mcg/actuation nasal spray,suspension 2 spray INTRANASAL QDAY PRN 03/08/18 [History Confirmed 03/08/18] metoprolol succinate ER 25 mg tablet,extended release 24 hr 25 mg PO QDAY #90 tab 03/08/18 [Rx Confirmed 03/08/18] omeprazole 20 mg capsule,delayed release 20 mg PO QDAY 03/08/18 [History Confirmed 03/08/18] [facility] Medical History Hyperlipidemia (Chronic) GERD (gastroesophageal reflux disease) (Acute) Erectile dysfunction (Chronic) Surgical History History of arthroplasty of left knee (Resolved) Family History Mother CAD (coronary artery disease) CABG late 60's Brother Heart disease PPM for Atrial Fib Hypertension Social History Smoking Status: Never smoker ROS Const Const: Negative for fatigue, weakness, difficulty sleeping, frequent falls, excessive sweating or headache(s) Eyes Eyes: Negative for loss of peripheral vision, transient loss of vision, blurry vision, tunnel vision or double vision ENT ENT: Negative for headache(s), dizziness, Nosebleed/epistaxis or balance problems Cardio Chest Pain: No Palpitations: No Edema: None Muscle aches with walking: None Resp Respiratory: Negative for SOB with activity, SOB at rest, SOB orthopnea\SOB lying down, paroxysmal nocturnal dyspnea or Cough GI GI: Positive for heartburn (Increase reflux over the past 4 days.); negative nausea, black,tarry stools or vomiting : Negative for hematuria Musc Musc: Negative for balance problems, muscle aches/ myalgia, muscle weakness or joint pain Skin Skin: Negative non-healing lesions, unusual bruising or rash Neuro Neuro: Negative for weakness, frequent falls, headache(s), blurry vision, double vision, dizziness, lightheadedness, orthostatic symptoms, near syncope, syncope or lack of coordination Melquiades Hematologic/Lymphatic: Negative for easy bruising or easy bleeding Endo Endo: Negative for fatigue, excessive sweating or increased thirst/drinking Psych Psych: Negative for anxiety or depression Allergy Allergy/Immunology: Negative for hives, Negative for rash Cardiology Exam Const Appearance: cooperative, healthy appearing, well developed, well groomed and no acute distress Nutritional Appearance: well nourished and average body habitus Orientation: alert, awake and oriented x3 Head Head: normal to inspection, normocephalic and atraumatic Ears: hearing grossly normal bilaterally and external ears normal Nose: external nose normal, nasal mucous membranes and turbinates normal, nares normal, septum normal, no nasal discharge Face and Sinus: face symmetric Mouth: oral mucosae normal, tongue normal, oropharynx normal and moist mucous membranes Teeth and gingiva: dentition normal Throat: posterior oropharynx normal, tonsils normal and uvula midline Eyes General: appearance normal, both eyes and all related structures Eyelids: eyelids normal Conjunctivae: conjunctivae normal Pupils: PERRL, normal by confrontation and accommodation normal EOM: EOM intact bilaterally Neck Neck: normal visual inspection, trachea midline and no JVD JVD: +5 Carotids: normal carotid upstroke and bounding pulses Chest Chest inspection: normal inspection of the chest, symmetric chest movement and normal respiratory effort Auscultation: Bilateral: Clear to Auscultation Cardio Palpation: normal PMI Rate: regular rate Rhythm: regular rhythm Heart sounds: S1 normal, S2 normal and normal, physiologic split S2; negative rub, gallop or murmur GI GI: normal to inspection, soft, no hepatosplenomegaly and bowel sounds present Neuro General: alert, awake, oriented x3, no focal sensory deficit, gait normal and moves all extremities Skin Skin: no rashes or lesions noted Extremities Pulses: Normal: Right Femoral Pulse, Left Femoral Pulse, Right Dorsalis Pedis Pulse, Left Dorsalis Pedis Pulse, Right Posterior Tibial Pulse, Left Posterior Tibial Pulse, Right Radial Pulse, Left Radial Pulse Lower Extremity Edema: None: Bilateral Musculoskel Musculoskeletal: No joint tenderness Psych Psychological: normal affect Assessment AND Plan 1. Multiple premature ventricular complexes I49.49 Plan He does have a history of multiple premature ventricular complexes. The above comprised 16% of the total QRS complex. I like us to obtain an echocardiogram to assess his left ventricular function for risk stratification. In addition a stress test to be performed to due to his mildly abnormal troponin. He is completely asymptomatic he golfs but does not always walk. He has not had any chest pain or shortness of breath. Low-dose beta-betty with Toprol 25 mg a day will be started and after he gets back from his trip to [place] the above tests will be performed. Above has been explained to him in detail he understands and agrees to proceed. Orders Orders: 2. Troponin level elevated R74.8 Plan He did have a minimally elevated troponin of questionable significance. I would like us to further reevaluate the above with a stress test when he gets back from his visit. His risk factors in terms of coronary disease at the moment only related to age. Risk benefits alternatives were explained to him he understands and agrees to proceed. 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) Coding Level of Care Code Off vis,new,level 4 Diagnoses Multiple premature ventricular complexes I49.49 Troponin level elevated R74.8 Coding Level of Care Code Off vis,new,level 4 Diagnoses Multiple premature ventricular complexes I49.49 Troponin level elevated R74.8 03/08/18 1429 <Electronically signed by Bc Wolff MD> Date Bc Wolff MD Cosigner Signature: Date (if applicable) CC: Jonathan Negro MD EMERGENCY DEPARTMENT Observed: 03/06/2018 Status: F Source: [place] SUMMARY 5:24 PM [facility] REPOSITORY [facility] Medical Records Department [address] [facility] [place] [address] Emergency Department Summary 03/06/18 1611 MR#: [id number] Acct: [id number] Name: DELICIA SEGURA Rep #: [id number] : 1950 67 From: Alejo Lafleur MD PCP: Jonathan Negro MD Status: DEP ER - ER Visit Summary Date of Service: 03/06/18 Chief Complaint: Vertigo History of Present Illness: The patient is a [address] Jonathan Negro. He reports that over the past 2 days he has had episodes of vertigo when he rolls over in bed. This lasts for a few seconds at a time. He is nauseated with them and had dry heaves from a this morning. He denies any vertigo at this time. However, he does report that he is still nauseated. Patient was seen by Dr. Negro this morning and was found to have frequent PVCs. Patient denies any chest pain. He reports that 2 days ago he was in the shower and found that his left nipple was sore. He states this lasted approximately 1 day and had completely resolved. He denies any shortness of breath or diaphoresis. He states this was unchanged with exertion or deep breaths. He denies any chest pain with exertion or change in dyspnea exertion in the past month. Patient finally complains of a headache that is 3 out of 10 severity is generalized. He does have a history of similar headaches. He denies any numbness or weakness. Physical Examination: Vitals: Stable. Afebrile. General: Well-nourished and well-developed. Head: Normocephalic atraumatic. Neck: Supple, no lymphadenopathy. No JVD. Nontender. Cardiovascular: Bradycardic regular rhythm. No murmurs. Respiratory: No respiratory distress. Clear to auscultation bilaterally. Abdominal: Soft, nontender, nondistended, normal bowel sounds. No guarding, rebound, or peritoneal signs. Back: Nontender. Extremities: Nontender, no edema. Skin: Normal color, no rash. Neurologic: Alert and oriented 3. Cranial nerves II through XII are intact. Normal strength and sensation. Psych: Normal affect. Test Results: EKG is sinus at [address] changes. Repeat EKG is unchanged. CBC is more for her hemoglobin is 16.6, segmented neutrophils 41, lymphs at 46. Chem-7 is normal. TSH is normal. Magnesium is normal. Initial troponin is 0.145. Repeat troponin [address] brain shows chronic changes. Chest x-ray is normal. Emergency Department Course and Treatment: Patient was treated with an aspirin. He did have episodes of bigeminy while here. However he had no runs of PVCs. Treatment Plan: Patient was discussed with Dr. Wolff who asked that a 3 hour troponin be obtained. I spoke with him again after this was obtained and he would like the patient discharged 24 hour Holter monitor and he will see him this week in the office. I had a prolonged discussion the patient that if he develops any chest pain or shortness of breath to return to emerge department for admission for further evaluation. He is happy with this plan. Disposition: To home in improved and stable condition. Impression: 1. PVCs. 2. Indeterminate troponin. 3. Vertigo, peripheral. This note was generated with [employer] dictation software. It may contain incorrect words, spelling, and punctuation that were not noted in review of the chart prior to signing ED Disposition - Plan for ED Patient: Disposition: Home or Assisted Living Chief Complaint: Dizziness Instructions: Premature Ventricular Contractions Referrals: Bc Wolff MD [STAFF PHYSICIAN] - 3-5 Days What to do if you have Problems For any increased pain, shortness of breath, bleeding, nausea or vomiting, chest pain, or any unexpected problems, contact your Primary Care Provider. Call [facility] ([phone]) or report to the closest Emergency Room. Call 911 if necessary. 03/06/18 1724 <Electronically signed by Alejo Lafleur MD> Date Alejo Lafleur MD Cosigner Signature (If Indicated): Date CC: Jonathan Negro MD; Vi Negro MD TROPONIN-I Collected: 03/06/2018 Status: F Source: [place] 2:55 PM [facility] REPOSITORY Order Comment: Comments: Should be drawn 3H after initial Troponin obtained TYPE CODE TESTS RESULT OUT OF RANGE REFERENCE UNITS LAB L501.4010 <0.045 ng/mL High 0.150 TROPONIN-I Result Comment: TROPONIN-I EXPECTED VALUES <0.045 Negative 0.045 - 0.590 Consistent with Cardiac Damage > OR = 0.600 Critical Value Not every elevated troponin is indicative of KS. These values should be used with clinical judgement in examining the patient's clinical picture for diagnosis. To establish a diagnosis of KS versus myocardial injury, there must be a demonstrated rise and/or fall in the troponin values, in addition to ischemic symptoms, EKG changes, new regional wall motion abnormality, and/or angiographical evidence. PLEASE NOTE: REFERENCE RANGES EDITED 17 Performed By: #### L501.4010 #### [facility] [address] [place], [place], [address] CBC W/DIFF, AUTOMATED Collected: 03/06/2018 Status: F Source: [place] 11:55 AM [facility] REPOSITORY TYPE CODE TESTS RESULT OUT OF RANGE REFERENCE UNITS LAB L100.1000 4.4-11.0 K/mm3 Normal WBC 7.3 LAB L100.1200 4.6-6.2 M/mm3 Normal RBC 5.25 LAB L100.1300 13.0-16.5 g/dl High HGB 16.6 LAB L100.1400 40-54 % Normal HCT 47.2 LAB L100.1500 80-94 fL Normal MCV 89.9 LAB L100.1600 27.0-32.0 pg Normal MCH 31.6 LAB L100.1700 32-36 g/gl Normal MCHC 35.2 LAB L100.1810 11.6-14.6 % Normal RDW CV 13.7 LAB L100.1820 35.1-43.9 fl High RDW SD 44.3 LAB L100.1900 150-450 K/mm3 Normal PLT 201 LAB L100.2000 6.2-12.0 fl Normal MPV 10.8 LAB L100.2100 47-70 % Low NEUT% 41.2 LAB L100.2200 19-41 % High LY% 46.3 LAB L100.2300 0-10 % Normal MONO% 9.5 LAB L100.2400 0-5 % Normal EO% 2.2 LAB L100.2500 0-1 % Normal BASO% 0.8 LAB L100.2550 0.0-0.9 % Normal IM GRAN % 0.000 Result Comment: IG% - Immature Granulocytes (promyelocytes, myelocytes and metamyelocytes) > 1% indicates that a LEFT SHIFT is Present. LAB L100.2620 2.0-7.7 X10 3/uL Normal Absolute Neut 3.0 LAB L100.2720 0.83-4.51 X10 3/ul Normal Absolute Lymph 3.36 Performed By: #### L100.0100 #### [facility] [address] [place], [address] BASIC METABOLIC Collected: 03/06/2018 Status: F Source: [place] PROFILE (BMP) 11:55 AM [facility] REPOSITORY TYPE CODE TESTS RESULT OUT OF RANGE REFERENCE UNITS LAB L501.0100 74-106 mg/dL Normal GLU 94 Result Comment: Please note revised GLUCOSE reference range effective 2017. LAB L501.1000 7-18 mg/dL Normal BUN 15 LAB L501.1100 0.70-1.30 mg/dL Normal CREAT,SERUM 1.06 Result Comment: The validity of the calculated GFR AND GFRAA in patients over 70 years has not been determined. Clinical correlation is essential. LAB L501.1110 >60 mL/min Normal EST GFR 74 Result Comment: Non- GFR Calc LAB L501.1115 >60 mL/min Normal EST GFR - AA 90 Result Comment: GFR Calc LAB L501.1255 ml/min Normal Estimated CRCL 72.02 LAB L501.1300 10-20 RATIO Normal BUN/CRE 14.2 LAB L501.2200 8.5-10 mg/dL Normal .1 CA 8.9 LAB L501.5300 136-14 mmol/L Normal 5 NA 143 LAB L501.5600 3.5-5. mmol/L Normal 1 K 4.8 Result Comment: Moderate Hemolysis, Result may be falsely increased. LAB L501.5900 98-107 mmol/L Normal CL 107 LAB L501.6100 21.0-32.0 mmol/L Normal CO2 26.0 LAB L501.6200 5-15 Normal GAP 10 Performed By: #### L500.2500, L501.4010, L501.5200, L501.9520 #### [facility] [address] [place], [address] TROPONIN-I Collected: 03/06/2018 Status: F Source: [place] 11:55 AM [facility] REPOSITORY TYPE CODE TESTS RESULT OUT OF RANGE REFERENCE UNITS LAB L501.4010 <0.045 ng/mL High 0.145 TROPONIN-I Result Comment: TROPONIN-I EXPECTED VALUES <0.045 Negative 0.045 - 0.590 Consistent with Cardiac Damage > OR = 0.600 Critical Value Not every elevated troponin is indicative of KS. These values should be used with clinical judgement in examining the patient's clinical picture for diagnosis. To establish a diagnosis of KS versus myocardial injury, there must be a demonstrated rise and/or fall in the troponin values, in addition to ischemic symptoms, EKG changes, new regional wall motion abnormality, and/or angiographical evidence. PLEASE NOTE: REFERENCE RANGES EDITED 17 Performed By: #### L500.2500, L501.4010, L501.5200, L501.9520 #### [facility] [address] [place], [address] MAGNESIUM Collected: 03/06/2018 Status: F Source: [place] 11:55 AM [facility] REPOSITORY TYPE CODE TESTS RESULT OUT OF RANGE REFERENCE UNITS LAB L501.5200 1.6-2.6 mg/dL Normal MG 2.2 Result Comment: Moderate Hemolysis, Result may be falsely increased. Performed By: #### L500.2500, L501.4010, L501.5200, L501.9520 #### [facility] [address] [place], [address] THYROID STIM HORMONE Collected: 03/06/2018 Status: F Source: [place] (TSH) 11:55 AM [facility] REPOSITORY TYPE CODE TESTS RESULT OUT OF RANGE REFERENCE UNITS LAB L501.9520 0.358-3.74 uIU/mL Normal TSH 2.01 Performed By: #### L500.2500, L501.4010, L501.5200, L501.9520 #### [facility] [address] [place], [address] CHEST 1 VIEW Observed: 03/06/2018 Status: F Source: [place] (PORTABLE) 11:48 AM [facility] REPOSITORY [facility] Imaging Services [address] [place] [address] Chest 1 View (Portable) MR#: [id number] Acct: [id number] Name: DELICIA SEGURA Rep #: [id number] : 1950 M 67 From: Didier Khan MD PCP: Jonathan Negro MD Status: PRE ER Study: Chest 1 View (Portable) Date of Exam: 03/06/18 Exam# [id number] Ordering Dr: Alejo Lafleur MD STUDY: X-RAY CHEST REASON FOR EXAM: Male, 67 years old. 3 day history of dizziness and palpitations. TECHNIQUE: Single AP portable view of the chest. COMPARISON: None. FINDINGS: EKG electrodes are seen. The lungs are clear and expanded. There is no demonstrated pleural abnormality. Normal size heart. Normal mediastinum and fatou. Normal visualized pulmonary arteries. Normal visualized aortic arch and descending thoracic aorta. There are diffuse degenerative changes of the visualized thoracic spine. Normal visualized ribs, clavicles, and shoulders. There is no demonstrated abnormality of the visualized soft tissue structures of the upper abdomen. RAD/Chest 1 View (Portable) IMPRESSION: No acute abnormality is seen. 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 Vertigo, headache, bradycardia RADIATION DOSAGE (If Supplied By Facility): CTDIvol = ( 60.81 ) mGy, DLP = ( 1044.28 ) mGycm TECHNIQUE: Transaxial CT imaging of the brain was performed without administration of intravenous contrast material. Sagittal and coronal reconstructed images are provided and reviewed. Individualized dose optimization techniques were used for this CT. COMPARISON: None. FINDINGS: Vascular calcifications are seen. Normal calvarium. Normal size ventricles and extra-axial spaces for the patient's age. Normal white matter tracts of the cerebral hemispheres. There are small punctate calcifications of the basal ganglia which are seen in the aging brain as a normal variant. Normal brainstem. Normal cerebellum. There is no intracranial hemorrhage. There are no findings of an acute ischemic infarction. Normal visualized paranasal sinuses. CT/Brain/Head without Contrast IMPRESSION: Chronic involutional changes. No acute intracranial abnormality. Electronically Signed: Derek Velasquez DO at 12:40 EDT Tel , Service support , CC: Jonathan Negro MD; Alejo Lafleur MD V Belt [employer] Assembler And Curer: Signed ALLERGIES ALLERGIES DATE TYPE / CODE NAME / CODE REACTION SEVERITY SOURCE 04/20/2018 Drug No Known Unknown [facility] Allergy/4160 Allergies/F00 [facility] 03323(SNOMED 1599971(RXNOR Repository CT) M) ENCOUNTERS ENCOUNTERS ADMIT/DISCHARGE ACCOUNT ADMITTING ENCOUNTER LOCATION SOURCE NUMBER CLASS 08/29/2018 [id number] Ambulatory [place] [facility] [address] [facility] ing:MFPLAB Repository 04/28/2018 [id number] Ambulatory [facility] ing:MFPLAB Repository 04/27/2018 [id number] Ambulatory [place] [place] [facility] ing:LABSPEC Repository 04/20/2018/ [id number] Ambulatory BMSBuilding:B [place] 8 7 [place] Repository 03/27/2018 [id number] Ambulatory [place] [facility] [address] [facility] ing:CVS Repository 03/27/2018 [id number] Ambulatory BMSBuilding:W [facility] 6 [facility] Repository 03/08/2018/ [id number] Ambulatory BMSBuilding:B [facility] 8 7 [facility] Repository 03/08/2018 [id number] Ambulatory BMSBuilding:B [place] 1 [facility] Repository 03/08/2018 [id number] Ambulatory BMSBuilding:B [place] 5 [facility] Repository 03/06/2018 [id number] [place] [facility] ing:[facility] Repository 03/06/2018/ [id number] Emergency Becca Becca [address] [facility] ing:ED Repository 03/06/2018 [id number] Ambulatory BMSBuilding:W [place] [facility] Repository PAYERS PAYERS ENCOUNTER GUARANTOR PAYER SUBSCRIBER SOURCE 08/29/2018 DELICIA C Primary DELICIA C [place] [id number] Insurance:CIGNAPolicy PETTORINIDOB: [facility] Number: [id number], [place] [id number] Repository [address]Nmw: (330) Date:2371-56-67NL [phone] () [id number], [place] [address]JU: 08/29/2018 Secondary NOT GIVENUNK [place] Insurance:SELF PAY [facility] Number: Effective Repository Date:2018-08-29 04/28/2018 DELICIA C Primary DELICIA C [place] [id number] Insurance:CIGNAPolicy PETTORINIDOB: [facility] Number: [id number], [place] [id number] Repository [address]Rwn: (330) Date:6177-90-02PB [phone] () [id number], [place] [address]JO: 04/28/2018 Secondary NOT GIVENUNK [place] Insurance:SELF PAY [facility] Number: Effective Repository Date:2018-04-28 04/27/2018 DELICIA C Primary DELIICA C [place] [id number] Insurance:CIGNAPolicy PETTORINIDOB: [facility] Number: [id number], [place] [id number] Repository [address]Nur: (330) Date:1131-64-98[phone] (HP) [place] [address]AW: 04/27/2018 Secondary NOT GIVENUNK [place] Insurance:SELF PAY [facility] Number: Effective Repository Date:2018-04-27 04/20/2018 DELICIA C Primary DELICIA C [place] [id number] Insurance:CIGNAPolicy PETTORINIDOB: [facility] Number: [id number], [place] [id number] Repository [address]Pyn: (330) Date:5259-02-73VP [address] (HP) [place] [address]CO: 04/20/2018 Secondary NOT GIVENUNK [place] Insurance:SELF PAY [facility] Number: Effective Repository Date:2018-04-20 03/27/2018 DELICIA C Primary DELICIA C [place] [id number] Insurance:CIGNAPolicy PETTORINIDOB: [facility] Number: [id number], [place] [id number] Repository [address]Qsg: (330) Date:8811-80-38RR [address] (HP) [place] [address]NR: 03/27/2018 Secondary NOT GIVENUNK [place] Insurance:SELF PAY [facility] Number: Effective Repository Date:2018-03-24 03/27/2018 DELICIA C Primary DELICIA C [place] [id number] Insurance:CIGNAPolicy PETTORINIDOB: [facility] Number: [id number], [place] [id number] Repository [address]Rqt: (330) Date:7672-50-85TF [address] (HP) [place] [address]FL: 03/27/2018 Secondary NOT GIVENUNK [place] Insurance:SELF PAY [facility] Number: Effective Repository Date:2018-03-27 03/08/2018 DELICIA C Primary DELICIA C [place] [id number] Insurance:CIGNAPolicy PETTORINIDOB: [facility] Number: [id number], [place] [id number] Repository [address]Fat: (330) Date:7920-86-46AY [phone] () [id number], [place] [address]WW: 03/08/2018 Secondary NOT GIVENUNK [place] Insurance:SELF PAY [facility] Number: Effective Repository Date:2018-03-08 03/08/2018 DELICIA C Primary DELICIA C [place] [id number] Insurance:CIGNAPolicy PETTORINIDOB: [facility] Number: [id number], [place] [id number] Repository [address]Jay: (330) Date:7852-28-09LO [phone] () [id number], [place] [address]LP: 03/08/2018 Secondary NOT GIVENUNK [place] Insurance:SELF PAY [facility] Number: Effective Repository Date:2018-03-08 03/08/2018 DELICIA C Primary DELICIA C [place] [id number] Insurance:CIGNAPolicy PETTORINIDOB: [facility] Number: [id number], [place] [id number] Repository [address]Kkx: (330) Date:8231-84-72YK [address] () [id number], [place] [address]YH: 03/08/2018 Secondary NOT GIVENUNK [place] Insurance:SELF PAY [facility] Number: Effective Repository Date:2018-03-08 03/06/2018 DELICIA C Primary DELICIA C [place] [id number] Insurance:CIGNAPolicy PETTORINIDOB: [facility] Number: [id number], [place] [id number] Repository [address]Thr: (330) Date:1470-97-20YX [phone] (HP) [id number], [place] [address]JD: 03/06/2018 Secondary NOT GIVENUNK [place] Insurance:SELF PAY [facility] Number: Effective Repository Date:2018-03-06 03/06/2018 DELICIA C Primary DELICIA C [place] [id number] Insurance:CIGNAPolicy PETTORINIDOB: [facility] Number: [id number], [place] [id number] Repository [address]Nap: (330) Date:6787-34-33OL [phone] () 160609TPVFUFWKJZN, [place] [address]SR: 03/06/2018 Secondary NOT GIVENUNK [place] Insurance:SELF PAY [facility] Number: Effective Repository Date:2018-03-06 03/06/2018 DELICIA C Primary DELICIA C [place] [id number] Insurance:CIGNAPolicy PETTORINIDOB: [facility] Number: [id number], [place] [id number] Repository [address]Ppr: (330) Date:6584-22-23PS [phone] () 319509IOVFZAXVKLP, [place] [address]WP: 03/06/2018 Secondary DELICIA C [place] Insurance:MEDICARE A PETTORINIDOB: [id number] [id number] Repository Date:2018-03-06 03/06/2018 Tertiary NOT GIVENUNK [place] Insurance:SELF PAY [facility] Number: Effective Repository Date:2018-03-06
== END ==
PROVIDERS: Family Provider Family Medicine; PCP Family Medicine; Visit Provider Family Medicine
DX: E78.00 Pure hypercholesterolemia, unspecified (principal); Z12.5 Encounter for screening for malignant neoplasm of prostate
CPT/HCPCS: 36415; 80061; 80076; 84153; G0103

== ENCOUNTER → 2019-04-19 08:53 | Outpatient (CLI) | payer OTHER, SELFPAY ==
[2018-04-20 10:03] VITALS: BMI 30.4
[2019-04-19 10:45] LABS: Anion Gap 8 (5-15); BUN 14 mg/dL (7-18); BUN/Creat Ratio 13.6 RATIO (10-20); Calcium,Total 8.6 mg/dL (8.5-10.1); Chloride 114 mmol/L (98-107); Cholesterol 163 mg/dL (200); Creatinine, Serum 1.03 mg/dL (0.70-1.30); EST Glomerular Filtration Rate 76 mL/min (>60); Est Glom Filt Rate - Afr Amer 92 mL/min (>60); Glucose 100 mg/dL (74-106); High Density Lipoprotein 38 mg/dL; Potassium 4.5 mmol/L (3.5-5.1); Sodium Level 145 mmol/L (136-145); Triglycerides 137 mg/dL; Very Low Density Lipoprotein 27 mg/dL (5-40)
== END ==
PROVIDERS: Family Provider Family Medicine; PCP Family Medicine; Referring Provider Family Medicine; Visit Provider Family Medicine
DX: I47.2 Ventricular tachycardia (principal); E78.00 Pure hypercholesterolemia, unspecified
CPT/HCPCS: 36415; 80048; 80061

== ENCOUNTER → 2020-07-28 09:08 | Outpatient (CLI) | payer OTHER, SELFPAY ==
[2020-05-02 12:51] VITALS: BMI 30.5
[2020-07-28 10:26] LABS: ALB/GLOB Ratio 1.1 RATIO (0.9-2.4); AST(SGOT) 23 U/L (15-37); Alanine Aminotransfer ALT/SGPT 33 U/L (16-61); Albumin, Serum 3.9 g/dL (3.2-5.0); Alkaline Phosphatase 72 U/L (45-117); Anion Gap 8 (5-15); BUN 14 mg/dL (7-18); BUN/Creat Ratio 12.8 RATIO (10-20); Calcium,Total 8.8 mg/dL (8.5-10.1); Chloride 107 mmol/L (98-107); Cholesterol 125 mg/dL (200); Creatinine, Serum 1.09 mg/dL (0.70-1.30); EST Glomerular Filtration Rate 71 mL/min (>60); Est Glom Filt Rate - Afr Amer 86 mL/min (>60); Globulin 3.4 g/dL (2.2-4.2); Glucose 101 mg/dL (74-106); High Density Lipoprotein 50 mg/dL; Potassium 4.1 mmol/L (3.5-5.1); Protein, Total 7.3 g/dL (6.4-8.2); Sodium Level 139 mmol/L (136-145); Triglycerides 116 mg/dL; Very Low Density Lipoprotein 23 mg/dL (5-40)
== END ==
PROVIDERS: PCP Family Medicine; Referring Provider Family Medicine; Visit Provider Family Medicine
DX: E78.00 Pure hypercholesterolemia, unspecified (principal)
CPT/HCPCS: 36415; 80053; 80061

== ENCOUNTER → 2021-01-28 08:54 | Outpatient (CLI) | payer OTHER, SELFPAY ==
[2020-12-05 15:24] VITALS: BMI 30.5
[2021-01-28 10:32] LABS: Absolute Lymphocyte Count 3.49 X10^3/uL (0.83-4.51); Basophil# 0.08 X10^3/uL; Eosinophil# 0.44 X10^3/uL; Eosinophils% 5.7 % (0-5); Hematocrit 48.9 % (40-54); Hemoglobin 16.6 g/dL (13.0-16.5); Lymphocyte # 3.49 X10^3/ul (0.83-4.51); Mean Corp Hgb Conc 33.9 g/dL (32-36); Mean Corpuscular Hgb 31.2 pg (27.0-32.0); Mean Corpuscular Volume 91.9 fL (80-94); Mean Platelet Vol. 10.7 fl (6.2-12.0); Monocyte# 0.72 X10^3/uL; Monocyte% 9.3 % (0-10); NRBC Flagged by Analyzer 0 % (0-5); Neutrophil % 38.6 % (47-70); Platelet Count 210 K/mm3 (150-450); RBC Distribution Width CV 13.9 % (11.6-14.6); RBC Distribution Width SD 46.5 fl (35.1-43.9); Red Blood Count 5.32 M/mm3 (4.6-6.2); White Blood Count 7.8 K/mm3 (4.4-11.0)
[2021-01-28 10:40] LABS: ALB/GLOB Ratio 1.1 RATIO (0.9-2.4); AST(SGOT) 22 U/L (15-37); Alanine Aminotransfer ALT/SGPT 32 U/L (16-61); Albumin, Serum 3.7 g/dL (3.2-5.0); Alkaline Phosphatase 69 U/L (45-117); Anion Gap 6 (5-15); BUN 14 mg/dL (7-18); BUN/Creat Ratio 12.8 RATIO (10-20); Calcium,Total 8.7 mg/dL (8.5-10.1); Chloride 108 mmol/L (98-107); Cholesterol 124 mg/dL (200); Creatinine, Serum 1.09 mg/dL (0.70-1.30); EST Glomerular Filtration Rate 71 mL/min (>60); Est Glom Filt Rate - Afr Amer 86 mL/min (>60); Globulin 3.4 g/dL (2.2-4.2); Glucose 95 mg/dL (74-106); High Density Lipoprotein 42 mg/dL; PSA,Total - Annual Screen 1.15 ng/mL (0.00-4.00); Potassium 4.4 mmol/L (3.5-5.1); Protein, Total 7.1 g/dL (6.4-8.2); Sodium Level 140 mmol/L (136-145); Triglycerides 116 mg/dL; Very Low Density Lipoprotein 23 mg/dL (5-40)
== END ==
PROVIDERS: PCP Family Medicine; Referring Provider Family Medicine; Visit Provider Family Medicine
DX: E78.00 Pure hypercholesterolemia, unspecified (principal); Z12.5 Encounter for screening for malignant neoplasm of prostate
CPT/HCPCS: 36415; 80053; 80061; 84153; 85025; G0103

== ENCOUNTER → 2021-07-14 08:31 | Outpatient (CLI) | payer MEDICARE, BC, SELFPAY ==
[2021-07-14 10:42] LABS: ALB/GLOB Ratio 1.1 RATIO (0.9-2.4); AST(SGOT) 25 U/L (15-37); Alanine Aminotransfer ALT/SGPT 39 U/L (16-61); Albumin, Serum 3.7 g/dL (3.2-5.0); Alkaline Phosphatase 61 U/L (45-117); Anion Gap 6 (5-15); BUN 13 mg/dL (7-18); Calcium,Total 9.2 mg/dL (8.5-10.1); Chloride 112 mmol/L (98-107); Cholesterol 100 mg/dL (200); Creatinine, Serum 1.08 mg/dL (0.70-1.30); EST Glomerular Filtration Rate 72 mL/min (>60); Est Glom Filt Rate - Afr Amer 87 mL/min (>60); Globulin 3.5 g/dL (2.2-4.2); Glucose 102 mg/dL (74-106); High Density Lipoprotein 42 mg/dL; Potassium 4.1 mmol/L (3.5-5.1); Protein, Total 7.2 g/dL (6.4-8.2); Sodium Level 143 mmol/L (136-145); Triglycerides 90 mg/dL; Very Low Density Lipoprotein 18 mg/dL (5-40)
== END ==
PROVIDERS: PCP Family Medicine; Referring Provider Family Medicine; Visit Provider Family Medicine
DX: E78.00 Pure hypercholesterolemia, unspecified (principal)
CPT/HCPCS: 36415; 80053; 80061

== ENCOUNTER → 2021-12-17 | Outpatient (CLI) | payer MEDICARE, BC, SELFPAY ==
--- NOTE | 2021-12-17 10:52 | ECHOD_ITS ---
Reason For Study: Arrhythmia Procedure This was a 2D Doppler, Color Flow transthoracic echocardiogram. Exam performed in department. Left Ventricle Normal LV size. Left ventricular systolic function is normal. The estimated ejection fraction is 60 %. Stage 1 diastolic dysfunction. No regional wall motion abnormalities noted. Right Ventricle Normal RV size. Normal systolic function. Atria Normal left atrium. Normal right atrium. Mitral Valve Normal mitral valve. Tricuspid Valve Normal tricuspid valve. Mild (1+) tricuspid valve insufficiency. Pulmonary artery systolic pressure is 26 mmHg. Aortic Valve Normal aortic valve. Pulmonic Valve Normal pulmonic valve. Great Vessels Normal aortic root. The pulmonary artery is normal size. Normal inferior vena cava. Pericardium/Pleural No pericardial effusion. MMode/2D Measurements & Calculations LVIDd: 4.6 cm IVSd: 1.1 cm Ao root diam: 3.4 cm LVIDs: 3.1 cm LVPWd: 1.1 cm RVDd: 3.3 cm FS: 33.2 % LAV(MOD-bp): 45.8 ml LVAd ap4: 29.6 cm2 SV(MOD-sp4): 58.9 ml LAV(MOD-bp) Indexed: 21.1 ml/m2 LVLd ap4: 8.5 cm LAV(MOD-sp2): 35.0 ml EDV(MOD-sp4): 88.4 ml LAV(MOD-sp4): 47.7 ml EDV(sp4-el): 87.5 ml LVAs ap4: 15.6 cm2 LVLs ap4: 7.4 cm ESV(MOD-sp4): 29.4 ml ESV(sp4-el): 28.0 ml EF(MOD-sp4): 66.7 % EF(sp4-el): 67.9 % SV(sp4-el): 59.4 ml LA A4 area: 18.7 cm2 LA dimension(2D): 4.0 cm RA A4 area: 15.2 cm2 Doppler Measurements & Calculations MV E max ector: 74.4 cm/sec Lat Peak E' Ector: 10.5 cm/sec Med Peak E' Ector: 7.0 cm/sec MV A max ector: 77.5 cm/sec E/E' lat: 7.1 E/E' med: 10.7 MV E/A: 0.96 Ao V2 max: 147.0 cm/sec LV V1 max: 124.9 cm/sec PA V2 max: 88.2 cm/sec Ao max P.6 mmHg LV V1 max P.2 mmHg TR max ector: 237.5 cm/sec TR max P.6 mmHg ECHO/Echo Complete Interpretation Summary Normal LV size. Left ventricular systolic function is normal. The estimated ejection fraction is 60 %. Stage 1 diastolic dysfunction. Structurally normal valves. Ordering Physician: Bc Wolff Referring Physician: Bob Argueta MD Performed By: Maria Esther Garibay RDCS
== END | disposition home or self-care (01) ==
LOC: CVS 10:51
PROVIDERS: PCP Family Medicine; Visit Provider Internal Medicine Cardiovascular Disease
DX: I49.49 Other premature depolarization (principal)
CPT/HCPCS: 93306

== ENCOUNTER → 2022-02-16 | Outpatient (CLI) | payer MEDICARE, BC, SELFPAY ==
[2022-02-16 10:21] LABS: Absolute Lymphocyte Count 3.25 X10^3/uL (0.83-4.51); Absolute Neutrophil Count 2.5 X10^3/uL (2.0-7.7); Basophil# 0.07 X10^3/uL; Hematocrit 47.5 % (40-54); Hemoglobin 16.4 g/dL (13.0-16.5); Lymphocyte # 3.25 X10^3/ul (0.83-4.51); Mean Corp Hgb Conc 34.5 g/dL (32-36); Mean Corpuscular Hgb 31.9 pg (27.0-32.0); Mean Corpuscular Volume 92.4 fL (80-94); Mean Platelet Vol. 10.7 fl (6.2-12.0); Monocyte# 0.75 X10^3/uL; Monocyte% 11.1 % (0-10); NRBC Flagged by Analyzer 0 % (0-5); Neutrophil # 2.48 X10^3/uL (2.7-7.7); Neutrophil % 36.6 % (47-70); Platelet Count 204 K/mm3 (150-450); RBC Distribution Width CV 13.9 % (11.6-14.6); RBC Distribution Width SD 47.2 fl (35.1-43.9); Red Blood Count 5.14 M/mm3 (4.6-6.2); White Blood Count 6.8 K/mm3 (4.4-11.0)
[2022-02-16 10:51] LABS: Anion Gap 5 (5-15); BUN 15 mg/dL (7-18); BUN/Creat Ratio 13.9 RATIO (10-20); Chloride 108 mmol/L (98-107); Cholesterol 115 mg/dL (200); Creatinine, Serum 1.08 mg/dL (0.70-1.30); EST Glomerular Filtration Rate 72 mL/min (>60); Est Glom Filt Rate - Afr Amer 87 mL/min (>60); Glucose 105 mg/dL (74-106); High Density Lipoprotein 41 mg/dL; Potassium 4.1 mmol/L (3.5-5.1); Sodium Level 139 mmol/L (136-145); Triglycerides 128 mg/dL; Very Low Density Lipoprotein 26 mg/dL (5-40)
== END | disposition home or self-care (01) ==
LOC: MFPLAB 09:01
PROVIDERS: PCP Family Medicine; Referring Provider Family Medicine; Visit Provider Family Medicine
DX: Z01.818 Encounter for other preprocedural examination (principal); E78.00 Pure hypercholesterolemia, unspecified
CPT/HCPCS: 36415; 80048; 80061; 85025

== ENCOUNTER → 2022-07-21 | Outpatient (CLI) | payer MEDICARE, BC, SELFPAY ==
[2022-07-21 10:25] LABS: Anion Gap 6 (5-15); BUN 17 mg/dL (7-18); BUN/Creat Ratio 16.8 RATIO (10-20); Calcium,Total 8.8 mg/dL (8.5-10.1); Chloride 108 mmol/L (98-107); Cholesterol 116 mg/dL (200); Creatinine, Serum 1.01 mg/dL (0.70-1.30); EST Glomerular Filtration Rate 77 mL/min (>60); Est Glom Filt Rate - Afr Amer 93 mL/min (>60); Glucose 103 mg/dL (74-106); High Density Lipoprotein 45 mg/dL; PSA,Total - Annual Screen 0.38 ng/mL (0.00-4.00); Potassium 4.4 mmol/L (3.5-5.1); Sodium Level 139 mmol/L (136-145); Triglycerides 103 mg/dL; Very Low Density Lipoprotein 21 mg/dL (5-40)
== END | disposition home or self-care (01) ==
LOC: MFPLAB 08:51
PROVIDERS: PCP Family Medicine; Referring Provider Family Medicine; Visit Provider Family Medicine
DX: E78.00 Pure hypercholesterolemia, unspecified (principal); Z12.5 Encounter for screening for malignant neoplasm of prostate
CPT/HCPCS: 36415; 80048; 80061; 84153; G0103

== ENCOUNTER → 2023-07-27 | Outpatient (CLI) | payer MEDICARE, BC, SELFPAY ==
[2023-07-27 10:21] LABS: Hematocrit 46.9 % (40-54); Hemoglobin 15.7 g/dL (13.0-16.5); Mean Corp Hgb Conc 33.5 g/dL (32-36); Mean Corpuscular Hgb 31.4 pg (27.0-32.0); Mean Corpuscular Volume 93.8 fL (80-94); Platelet Count 201 K/mm3 (150-450); RBC Distribution Width CV 14.1 % (11.6-14.6); RBC Distribution Width SD 47.5 fl (35.1-43.9); White Blood Count 6.2 K/mm3 (4.4-11.0)
[2023-07-27 11:09] LABS: ALB/GLOB Ratio 1.2 RATIO (0.9-2.4); AST(SGOT) 27 U/L (15-37); Alanine Aminotransfer ALT/SGPT 32 U/L (16-61); Albumin, Serum 3.7 g/dL (3.2-5.0); Alkaline Phosphatase 55 U/L (45-117); Anion Gap 4 (5-15); BUN 11 mg/dL (7-18); BUN/Creat Ratio 11.3 RATIO (10-20); Calcium,Total 8.7 mg/dL (8.5-10.1); Chloride 112 mmol/L (98-107); Creatinine, Serum 0.98 mg/dL (0.70-1.30); EST Glomerular Filtration Rate 80 mL/min (>60); Est Glom Filt Rate - Afr Amer 97 mL/min (>60); Globulin 3.1 g/dL (2.2-4.2); Glucose 97 mg/dL (74-106); Magnesium 2.2 mg/dL (1.6-2.6); Potassium 4.3 mmol/L (3.5-5.1); Protein, Total 6.8 g/dL (6.4-8.2); Sodium Level 140 mmol/L (136-145); Thyroid Stim Hormone (TSH) 1.28 uIU/mL (0.358-3.74)
== END | disposition home or self-care (01) ==
LOC: MFPLAB 08:47
PROVIDERS: PCP Family Medicine; Visit Provider Family Medicine
DX: I48.91 Unspecified atrial fibrillation (principal)
CPT/HCPCS: 36415; 80053; 83735; 84443; 85027

== ENCOUNTER → 2023-07-29 | Outpatient (CLI) | payer MEDICARE, BC, SELFPAY ==
--- NOTE | 2023-07-29 07:48 | ECHOD_ITS ---
Reason For Study: Afib Procedure This was a 2D Doppler, Color Flow transthoracic echocardiogram. Exam performed in department. Left Ventricle Normal LV size. Left ventricular systolic function is normal. The estimated ejection fraction is 65 %. Stage 1 diastolic dysfunction. No regional wall motion abnormalities noted. Right Ventricle Normal RV size. Normal systolic function. Atria Normal left atrium. Normal right atrium. Mitral Valve Normal mitral valve. Tricuspid Valve Normal tricuspid valve. Mild tricuspid valve insufficiency. Pulmonary artery systolic pressure is 30 mmHg. Aortic Valve Trisinus/trileaflet aortic valve. Mild (1+) aortic valve insufficiency. Pulmonic Valve Normal pulmonic valve. Great Vessels Normal aortic root. The pulmonary artery is normal size. Normal inferior vena cava. Pericardium/Pleural No pericardial effusion. MMode/2D Measurements & Calculations LVIDd: 5.6 cm IVSd: 0.93 cm Ao root diam: 3.4 cm LVIDs: 3.5 cm LVPWd: 0.86 cm RVDd: 3.2 cm FS: 37.6 % LAV(MOD-bp): 49.4 ml LVAd ap4: 28.6 cm2 SV(MOD-sp4): 53.7 ml LAV(MOD-bp) Indexed: 22.7 ml/m2 LVLd ap4: 8.1 cm LAV(MOD-sp2): 42.7 ml EDV(MOD-sp4): 83.6 ml LAV(MOD-sp4): 49.9 ml EDV(sp4-el): 85.3 ml LVAs ap4: 15.1 cm2 LVLs ap4: 6.7 cm ESV(MOD-sp4): 29.9 ml ESV(sp4-el): 28.9 ml EF(MOD-sp4): 64.2 % EF(sp4-el): 66.1 % SV(sp4-el): 56.4 ml LA A4 area: 19.2 cm2 LA dimension(2D): 4.2 cm RA A4 area: 13.0 cm2 TAPSE: 2.2 cm Time Measurements MV dec time: 0.22 sec Doppler Measurements & Calculations MV E max ector: 70.8 cm/sec Lat Peak E' Ector: 9.3 cm/sec Med Peak E' Ector: 8.7 cm/sec MV A max ector: 87.5 cm/sec E/E' lat: 7.6 E/E' med: 8.1 MV E/A: 0.81 Ao V2 max: 129.2 cm/sec LV V1 max: 112.4 cm/sec MV dec slope: 316.7 cm/sec2 Ao max P.7 mmHg LV V1 max P.1 mmHg Ao V2 mean: 89.1 cm/sec LV V1 mean P.6 mmHg Ao mean P.7 mmHg LV V1 mean: 75.5 cm/sec Ao V2 VTI: 33.4 cm LV V1 VTI: 26.8 cm AV (velocity ratio): 0.80 PA V2 max: 87.4 cm/sec TR max ector: 260.0 cm/sec TR max P.0 mmHg ECHO/Echo Complete Interpretation Summary Normal LV size. Left ventricular systolic function is normal. The estimated ejection fraction is 65 %. Pulmonary artery systolic pressure is 30 mmHg. Stage 1 diastolic dysfunction. Structurally normal valves. Ordering Physician: Bob Argueta Referring Physician: Bob Argueta Performed By: Bettina Aleman, SARI, RVT
== END | disposition home or self-care (01) ==
LOC: CVS 07:44
PROVIDERS: PCP Family Medicine; Referring Provider Family Medicine; Visit Provider Family Medicine
DX: I48.91 Unspecified atrial fibrillation (principal); R00.2 Palpitations
CPT/HCPCS: 93306

== ENCOUNTER → 2023-08-05 | Outpatient (CLI) | payer MEDICARE, BC, SELFPAY ==
--- OUTSIDE RECORDS SUMMARY | 2023-08-05 06:14 | XMS RPT_ITS | CCD ---
Author Name Unknown Address [address] [place] [address] Organization [facility] Care Team Providers Care Human Resource Analyst Name Role Phone Chase Argueat MD Primary Care Provider KIA MONAE Attending Unavailable CHASE ARGUETA Primary Care UnavailLUIS EDUARDO Harry Referring Unavailable CHASE ARGUETA Primary Care UnavailLUIS EDUARDO Harry Referring Unavailable CHASE ARGUETA Primary Care Chase Garzon MD Primary Care Provider Medications Completed/Discontinued Medications Medication Drug Class(es) Dates Sig (Normalized) Sig (Original) acetaminophen 325 mg oral tablet (11 sources) Start: 04-23-2020 acetaminophen (TYLENOL) 325 mg tablet Take by mouth q 6 HR. 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; Translations: [Cerebral infarction due to unspecified occlusion or stenosis of basilar artery] Onset: 04-26-2023 04-22-2023 Chronic Cardiac dysrhythmias (1 source) Paroxysmal atrial fibrillation; Translations: [Paroxysmal atrial fibrillation] 06-24-2023 Chronic Cardiac dysrhythmias (2 sources) Palpitations; Translations: [Palpitations] 04-26-2023 Episodic Disorders of lipid metabolism (12 sources) Mixed hyperlipidemia; Translations: [Mixed hyperlipidemia] Onset: 08-14-2020 08-14-2020 Chronic Essential hypertension (1 source) Essential hypertension; Translations: [Essential (primary) hypertension] 04-26-2023 Chronic Occlusion or stenosis of precerebral arteries (11 sources) Basilar artery occlusion; Translations: [Occlusion and stenosis of basilar artery] Onset: 08-14-2020 08-14-2020 Chronic Other and ill-defined cerebrovascular disease (1 source) Cerebrovascular disease; Translations: [Cerebrovascular disease, unspecified] 04-26-2023 Chronic Other screening for suspected conditions (not mental disorders or infectious disease) (5 sources) Patient encounter status; Translations: [Encounter for screening for cardiovascular disorders] Onset: 04-25-2023 04-22-2023 Episodic Residual codes; unclassified (1 source) Disturbance in sleep behavior; Translations: [Sleep disorder, unspecified] 04-26-2023 Episodic Results Test Name Value Interpretation Reference Range Facil ity Encounters Encounter Date Encounter Type Care Provider Facility Start: 06-27-2023 ambulatory Kia May PRN.CNP Work Phone: [facility] Procedures Date Procedure Procedure Detail Performing Clinician Start: 04-26-2023 Ct angiography head w/contrast/noncontrast Luis Eduardo Prieto MD Work Phone: Start: 04-26-2023 Ct angiography neck w/contrast/noncontrast Luis Eduardo Prieto MD Work Phone: Start: 02-10-2021 Adult depression scr eening assessment Luis Eduardo Prieto MD Work Phone: Plan of Treatment Date Care Activity Detail Author Start: 04-18-2024 Urine microalbumin profile DTaP,Tdap,Td Vaccine (2 - Td or Tdap) [facility] Start: 04-22-2023 End: 06-22-2023 CREATININE BLD CREATININE BLD Lab Routine Screening for nephropathy Expected: 04/22/2023, Expires: 06/22/2023 [facility] Work Phone: Immunizations Immunization Date Immunization Notes Care Provider [facility] 06-25-2022 influenza virus vacc ine, unspecified formulation Kia Monae APRN.CNP Work Phone: [facility] 05-13-2020 influenza virus vacc ine, unspecified formulation Luis Eduardo Prieto MD Work Phone: [facility] Payers Date Payer Category Payer Medicare MEDICARE MEDICAR E A AND B [id number] 2021-Present [phone] [place] [address] Medicare [id number] 2021 Medicare MEDICARE MEDICAR E A AND B [id number] 2021-Present [phone] [address] [address] [place] [address] Medicare [id number] 2021 Medicare [id number] 2021 Medicare [id number] 2021 Unknown DANIEL SANCHEZ ID DICARE SUPPLEMENT [id number] 2021-Present [phone] [address] [place] [address] Indemnity [id number] 2021 Unknown LAILALEENA DANIEL ID DICARE SUPPLEMENT [id number] 2021-Present [phone] [id number] [place] [address] Indemnity [id number] Social History Date Type Detail Facility Start: 05-09-2020 Tobacco smoking status NHIS Never smoked tobacco [facility] Start: 05-09-2020 Tobacco use and exposure Smokeless tobacco non-user [facility] Start: 02-11-2021 Alcohol intake Lifetime non-drinker (finding) [facility] Start: 05-09-2020 History SDOH Alcohol Frequency 1 [facility] Start: 1950 Sex Assigned At Male [facility] Start: 05-09-2020 End: 07-15-2020 History of Social function [facility] Work Phone: Start: 05-09-2020 End: 07-15-2020 Alcohol Use Disorder Identification Test - Consumption [AUDIT-C] [facility] Work Phone: How often to you hav e a drink containing alcohol? Never [facility] Work Phone: Average Number of Drinks Not on file [facility] Start: 05-06-2020 Gender identity Identifies as male gender (finding) [facility] Start: 05-06-2020 Sexual orientation Heterosexual (finding) [facility] Clinical Notes 01-29-2022 to 06-24-2023 Telephone Encounter - Kia Monae APRN.CNP - 06/24/2023 9:24 AM ESTTelephone Encounter - Nate Gavinle - 05/10/2023 10:25 AM EDTKia Monae APRN.CNP - 04/26/2023 3:21 PM EDT Note Date & Type Note Facility 06-24-2023 Miscellaneous Notes Called and spoke to patient. Ziopatch confirmed paroxysmal afib. Started on apixaban (eliquis) 5mg twice daily. Reviewed with Drs. Prieto and Rudy. Instructed to stop aspirin when starting eliquis. Advised consultation with cardiology for new diagnosed afib. Recommend yearly FU ~ Apr 2024. If stable neurologically at that time can follow up prn at that time. Kia Monae APRN.CARDIOPULMONARY PHYSICAL THERAPIST documented in this encounter [facility] 05-10-2023 Note HNO ID: [id number] Author: Mckay Grant MD Service: ? Author Type: Physician Type: Procedures Filed: 06/23/2023 5:07 PM Note Text: Patient name: Maurice Strickland Monitor analysis time: approximately 13 days. Patient had a min HR of 44 bpm, max HR of 190 bpm, and avg HR of 63 bpm. Predominant underlying rhythm was Sinus Rhythm. 4 Ventricular Tachycardia runs occurred, the run with the fastest interval lasting 31 beats with a max rate of 190 bpm, the longest lasting 10.4 secs with an avg rate of 179 bpm. 19 Supraventricular Tachycardia runs occurred, the run with the fastest interval lasting 7 beats with a max rate of 187 bpm, the longest lasting 8 beats with an avg rate of 90 bpm. Atrial Fibrillation occurred (3% burden), ranging from 81-174 bpm (avg of 120 bpm), the longest lasting 3 hours 54 mins with an avg rate of 119 bpm. Atrial Fibrillation was detected within +/- 45 seconds of symptomatic patient event(s). Isolated SVEs were rare (<1.0%), SVE Couplets were rare (<1.0%), and SVE Triplets were rare (<1.0%). Isolated VEs were rare (<1.0%, 7232), VE Couplets were rare (<1.0%, 32), and VE Triplets were rare (<1.0%, 2). Ventricular Bigeminy and Trigeminy were present. MD notification criteria for Rapid Atrial Fibrillation met - report posted prior to leaving voicemail per account request (TB). Episode of listed NSVT 06/08/2023 at 10:48 pm may potentially be SVT with aberrant conduction. Atrial fibrillation confirmed. Patient triggered event(s) / symptom notation(s) correlated with sinus, VE(s), atrial fibrillation. Mckay Grant MD Cardiac Electrophysiology 06/23/2023 Patient Name: Maurice Kahn : 1950 Ordering Provider: Kia Monae Indication: R00.2 Palpitations Type of Monitor: Extended Monitoring-Zio Patch Enrollment Dates: 05/28/2023-06/11/2023 [facility] 05-10-2023 Miscellaneous Notes Spoke with [employer] rep. Pt. Stated device fell off after less than one day of wear time. Pt. Requesting a new patch. Alannah documented in this encounter [facility] 04-26-2023 Note HNO ID: [id number] Author: Kia Monae APRN.CARDIOPULMONARY PHYSICAL THERAPIST Service: ? Author Type: Nurse Practitioner Type: Progress Notes Filed: 04/26/2023 6:53 PM Note Text: [facility] Virtual Visit I have communicated my name and active licensure. The patient's identity and physical location were verified at the time of this visit. Either the patient or their legal business process representative has been informed of the risks and benefits of -- and alternatives to -- treatment through a remote evaluation and consents to proceed with the evaluation remotely. Consultation is requested by: No referring provider defined for this encounter. PCP: Chase Argueta ([facility]) [address] [place] [address] CEREBROVASCULAR H[facility] Maurice Kahn is a 72 year old right-handed male. Reason for Visit: - basilar stenosis Interval History: - alone on video - last visit Dr. 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 No further dizziness, LH since then. Spontaneously resolved. - one month ago sleep problems- hears thumping at night not described as wooshing or ringing but makes sound of heartbeat - bought sound machine and sleeping somewhat better but not great - BP at home 130s/80s, HR 60s - lipitor 80 - losartan 50 once daily and started ~ 1 month ago per his bellperson bc BP a little high. Symptoms correlate when starting this medication - recent CUS and abdominal US reportedly ok in [place] - heart races with indigestion - denies diplopia, vision changes, syncope, near syncope, dizziness, LH MEDICATIONS Current Outpatient Medications Medication Sig iv contrast (will be provided with radiology test) CTA Head/Neck WO/W No IV access, insert saline lock prior to the sedation, infusion, injection for imaging exam. Discontinue saline lock post exam. If Pt. has a central line or IVAD, may access for administration according to line specific nursing protocol. Once exam is complete flush line and de-access according to line specific nursing protocol in the CT contrast administration guidelines link. aspirin 325 mg tablet Take 1 tablet by mouth one time only for 1 dose. traZODone (DESYREL) 50 mg tablet Take 50 mg by mouth daily at bedtime. acetaminophen (TYLENOL) 325 mg tablet Take by mouth q 6 HR. atorvastatin (LIPITOR) 80 mg tablet Take 80 mg by mouth daily at bedtime. Omeprazole Magnesium 10 mg suDR Take by mouth. No current facility-administered medications for this visit. ALLERGIES No Known Allergies EXAM Clear fluent speech. No distress. AANDO x 3. NO facial droop. Good insight into illness. LABS Cholesterol: No results found for: CHOL No results found for: LDL No results found for: HDL No results found for: TG Diabetes: No results found for: HBA1C IMAGING CTA head and neck today: IMPRESSION: No large vessel occlusion. Atherosclerotic plaque causing moderate right and mild left vertebral artery stenosis in the V4 segments. Partial origin R TERRESTRIAL ECOLOGIST. Otherwise basilar trunk and communications maintainer normal caliber. Less than 30% stenosis of left internal carotid artery by NASCET criteria. TCD 02/11/21 IMPRESSION: Technically difficult exam due to patient's poor acoustic windows and body habitus. All mean flow velocities and pulsatility indices are within normal limits. The basilar artery stenosis identified on the outside hospital CTA was not appreciated on today's transcranial Doppler ultrasound. Patient Entered Questionnaires Health Status Change Since Last Visit 04/26/2023 02/10/2021 Change Minimally worse No change PROMIS/NeuroQoL Score Percentiles Physical Health 04/26/2023 02/10/2021 Physical Function Percentile 50 46 Sleep Percentile 27* 66 Fatigue Percentile 79 69 Pain Interference Percentile 54 100 PROMIS SOCIAL ROLE SCORE 04/26/2023 02/10/2021 Social Role Satisfaction Percentile 58 69 Mental Health 04/26/2023 02/10/2021 NeuroQol Cognitive Function Percentile 84 0 General Self-Efficacy Percentile 62 62 PROMIS Global Health Scale 04/26/2023 02/10/2021 Physical Health Percentile 53 78 Mental Health Percentile 34 63 Percentiles provide an indication of how a patient's score ranks in relation to the [place] general population. > 31st percentile is within normal limits or better * < 31st percentile is at least ? SD worse than population, which may be clinically relevant < 16th percentile is at least 1 SD worse than population and warrants attention Depression Screening: PHQ-9 04/26/2023 02/10/2021 Score 0 1 Self-Harm Response 0 0 PHQ-9 Scores: PHQ-9 Self-Harm (Item 9) Response: 0 - 9 No to Mild depression 0 - Not at all 10 - 14 Moderate depression 1 - Several Days > 15 Severe depression 2 - More than half the days 3 - Nearly every day Sleep Apnea Probability Snor (more content not included)... [facility] 04-26-2023 Note HNO ID: [id number] Author: Zhang Mosqueda MD Service: ? Author Type: Physician Type: Procedures Filed: 05/20/2023 10:46 AM Note Text: Zio monitor reviewed. Agree with reported findings: Patient had a min HR of 50 bpm, max HR of 87 bpm, and avg HR of 61 bpm. Predominant underlying rhythm was Sinus Rhythm. Isolated SVEs were rare (<1.0%), and no SVE Couplets or SVE Triplets were present. Isolated VEs were rare (<1.0%), and no VE Couplets or VE Triplets were present. On my review: Monitor only worn for 2 hours. 1 patient diary event with time entry when monitor was not on. No sustained arrhythmias. Overall burden of ectopy was low. Zhang Mosqueda MD Patient Name: Maurice Kahn : 1950 Ordering Provider: Kia Monae Indication: R00.2 Palpitations Type of Monitor: Extended Monitoring-Zio Patch Enrollment Dates: 04/28/2023-04/28/2023 [facility] 04-26-2023 History of Presen t illness Narrative [facility] Virtual Visit I have communicated my name and active licensure. The patient's identity and physical location were verified at the time of this visit. Either the patient or their legal business process representative has been informed of the risks and benefits of -- and alternatives to -- treatment through a remote evaluation and consents to proceed with the evaluation remotely. Consultation is requested by: No referring provider defined for this encounter. PCP: Chase Argueta ([facility]) [address] [place] [id number] CEREBROVASCULAR HISTORY Maurice Kahn is a 72 year old right-handed male. Reason for Visit: - basilar stenosis Interval History: - alone on video - last visit Dr. 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 No further dizziness, LH since then. Spontaneously resolved. - one month ago sleep problems- hears thumping at night not described as wooshing or ringing but makes sound of heartbeat - bought sound machine and sleeping somewhat better but not great - BP at home 130s/80s, HR 60s - lipitor 80 - losartan 50 once daily and started ~ 1 month ago per his bellperson bc BP a little high. Symptoms correlate when starting this medication - recent CUS and abdominal US reportedly ok in [place] - heart races with indigestion - denies diplopia, vision changes, syncope, near syncope, dizziness, LH MEDICATIONS Current Outpatient Medications Medication Sig iv contrast (will be provided with radiology test) CTA Head/Neck WO/W No IV access, insert saline lock prior to the sedation, infusion, injection for imaging exam. Discontinue saline lock post exam. If Pt. has a central line or IVAD, may access for administration according to line specific nursing protocol. Once exam is complete flush line and de-access according to line specific nursing protocol in the CT contrast administration guidelines link. aspirin 325 mg tablet Take 1 tablet by mouth one time only for 1 dose. traZODone (DESYREL) 50 mg tablet Take 50 mg by mouth daily at bedtime. acetaminophen (TYLENOL) 325 mg tablet Take by mouth q 6 HR. atorvastatin (LIPITOR) 80 mg tablet Take 80 mg by mouth daily at bedtime. Omeprazole Magnesium 10 mg suDR Take by mouth. No current facility-administered medications for this visit. ALLERGIES No Known Allergies EXAM Clear fluent speech. No distress. A&O x 3. NO facial droop. Good insight into illness. LABS Cholesterol: No results found for: CHOL No results found for: LDL No results found for: HDL No results found for: TG Diabetes: No results found for: HBA1C IMAGING CTA head and neck today: IMPRESSION: No large vessel occlusion. Atherosclerotic plaque causing moderate right and mild left vertebral artery stenosis in the V4 segments. Partial origin R TERRESTRIAL ECOLOGIST. Otherwise basilar trunk and communications maintainer normal caliber. Less than 30% stenosis of left internal carotid artery by NASCET criteria. TCD 02/11/21 IMPRESSION: Technically difficult exam due to patient's poor acoustic windows and body habitus. All mean flow velocities and pulsatility indices are within normal limits. The basilar artery stenosis identified on the outside hospital CTA was not appreciated on today's transcranial Doppler ultrasound. Patient Entered Questionnaires Health Status Change Since Last Visit 04/26/2023 02/10/2021 Change Minimally worse No change PROMIS/NeuroQoL Score Percentiles Physical Health 04/26/2023 02/10/2021 Physical Function Percentile 50 46 Sleep Percentile 27* 66 Fatigue Percentile 79 69 Pain Interference Percentile 54 100 PROMIS SOCIAL ROLE SCORE 04/26/2023 02/10/2021 Social Role Satisfaction Percentile 58 69 Mental Health 04/26/2023 02/10/2021 NeuroQol Cognitive Function Percentile 84 0 General Self-Efficacy Percentile 62 62 PROMIS Global Health Scale 04/26/2023 02/10/2021 Physical Health Percentile 53 78 Mental Health Percentile 34 63 Percentiles provide an indication of how a patient's score ranks in relation to the [place] general population. > 31st percentile is within normal limits or better * < 31st percentile is at least SD worse than population, which may be clinically relevant < 16th percentile is at least 1 SD worse than population and warrants attention Depression Screening: PHQ-9 04/26/2023 02/10/2021 Score 0 1 Self-Harm Response 0 0 PHQ-9 Scores: PHQ-9 Self-Harm (Item 9) Response: 0 - 9 No to Mild depression 0 - Not at all 10 - 14 Moderate depression 1 - Several Days > 15 Severe depression 2 - More than half the days 3 - Nearly every day Sleep Apnea Probability Snores loudly: No Tired, fatigued or sleepy in daytime: No Stops breathing or choking/gasping during sleep: No High blood pressure: Yes Sleep Apnea Probability Score 04/26/2023 02/10/2021 Sleep Apnea Screen V2 58 (Recommend sleep study) 48.04 (Sleep study not recommended) Stroke Mechanism and Scales Cerebrovascular Disease w/o Stroke Event: Intracranial Stenosis Modified Lizeth Score: Score: 2 IMPRESSION Basilar stenosis - severe on CTA imaging in 04/2020 done during evaluation for dizziness. MRI brain negative acute stroke. Symptoms resolved spontaneously and no recurrence. Repeat imaging CTA today shows patent basilar artery and mild- mod vertebral disease. Mild - moderate vertebral artery stenosis - no posterior circulation symptoms. Asymptomatic. Sleep disturbance due to ? hearing heartbeat at night. ? coincides with initiation losartan. Palpitations ? afib in past? HTN - controlled at home HPL - on lipitor 80, LDL 59 in 2020 PLAN Continue aspirin daily in setting intracranial disease Ziopatch monitor to further evaluate symptoms and r/o PAF Review imaging with Dr. Prieto and my chart patient BP < 130/80 LDL chol < 70 I spent a total of 30 minutes on the date of the service which included preparing to see the patient, [id number] patient care, completing clinical documentation, performing a medically appropriate examination, counseling and educating the patient/family/caregiver, and ordering medications, tests, or procedures. SIGNATURE Kia Monae APRN.CARDIOPULMONARY PHYSICAL THERAPIST CC No referring provider defined for this encounter. Chase Argueta ([facility]) [address] [place] [address] documented in this encounter [facility] 04-26-2023 Note HNO ID: [id number] Author: Ariella Lewis RT(R) Service: ? Author Type: Filing Or Registry Clerk Type: Progress Notes Filed: 04/26/2023 11:40 AM Note Text: Radiology Service Progress Note DATE OF SERVICE: April 26, 2023 TIME: 11:39 AM PATIENT IDENTITY VERIFICATION COMPLETED USING TWO (2) STANDARD IDENTIFIERS: Name and Date of confirmed by patient verbally. FALL SCREENING: Has the patient had 2 falls in the last year or 1 fall with injury or currently using an Ambulatory Assistive Device (Walker, Cane, Wheelchair, Crutches, etc.)? No PATIENT GENDER DATA: Male PATIENT RELEVANT IMPLANT DATA REVIEWED: Yes ALLERGIES: Reviewed and unchanged CONTRAST ALLERGY: NO. EXAM: CT -CONTRAST INDUCED NEPHROPATHY RISK FACTORS: Patient age > 60 years CREATININE: Creatinine Date Value Ref Range Status 04/25/2023 0.98 0.73 - 1.22 mg/dL Final Estimated Glomerular Filtration Rate Date Value Ref Range Status 04/25/2023 82 >=60 mL/min/1.73m? Final Comment: Estimated Glomerular Filtration Rate (eGFR) is calculated using the 2020 CKD-EPI creatinine equation. This equation utilizes serum creatinine, sex, and age as parameters. The creatinine assay has traceable calibration to isotope dilution-mass spectrometry. Refer to KDIGO guidelines for clinical interpretation. In patients with unstable renal function, e.g. those with acute kidney injury, the eGFR may not accurately reflect actual GFR. P.O.C.T. RESULTS: POC done: Yes, See Lab Tab April 26, 2023 TREATMENT: N/A PERIPHERAL IV DATA: Ambulatory: A peripheral IV was started in the Left antecubital site with a Angio cath: 18 gauge. RADIOLOGY DEPARTMENT: CT; Exam(s) Completed: Brain , CTA Brain , and CTA Neck SIGNATURE: RT Katlyn(R) PATIENT NAME: Maurice Kahn DATE: April 26, 2023 TIME: 11:39 AM [facility] 04-26-2023 History of Presen t illness Narrative Radiology Service Progress Note DATE OF SERVICE: April 26, 2023 TIME: 11:39 AM PATIENT IDENTITY VERIFICATION COMPLETED USING TWO (2) STANDARD IDENTIFIERS: Name and Date of confirmed by patient verbally. FALL SCREENING: Has the patient had 2 falls in the last year or 1 fall with injury or currently using an Ambulatory Assistive Device (Walker, Cane, Wheelchair, Crutches, etc.)? No PATIENT GENDER DATA: Male PATIENT RELEVANT IMPLANT DATA REVIEWED: Yes ALLERGIES: Reviewed and unchanged CONTRAST ALLERGY: NO. EXAM: CT -CONTRAST INDUCED NEPHROPATHY RISK FACTORS: Patient age > 60 years CREATININE: Creatinine Date Value Ref Range Status 04/25/2023 0.98 0.73 - 1.22 mg/dL Final Estimated Glomerular Filtration Rate Date Value Ref Range Status 04/25/2023 82 >=60 mL/min/1.73m Final Comment: Estimated Glomerular Filtration Rate (eGFR) is calculated using the 2020 CKD-EPI creatinine equation. This equation utilizes serum creatinine, sex, and age as parameters. The creatinine assay has traceable calibration to isotope dilution-mass spectrometry. Refer to KDIGO guidelines for clinical interpretation. In patients with unstable renal function, e.g. those with acute kidney injury, the eGFR may not accurately reflect actual GFR. P.O.C.T. RESULTS: POC done: Yes, See Lab Tab April 26, 2023 TREATMENT: N/A PERIPHERAL IV DATA: Ambulatory: A peripheral IV was started in the Left antecubital site with a Angio cath: 18 gauge. RADIOLOGY DEPARTMENT: CT; Exam(s) Completed: Brain , CTA Brain , and CTA Neck SIGNATURE: Ariella TedCastilloRT sarah(R) PATIENT NAME: Maurice Kahn DATE: April 26, 2023 TIME: 11:39 AM documented in this encounter [facility] 01-29-2022 Miscellaneous Notes BLAS Bernstein returned called. Asking if Dr. Prieto would be OK to have patient stop ASA 3 days prior to the procedure instead of the recommended 5 days, and they will continue his home regimen of 325 mg on POD 1. Or would Dr[address] Prieto rather they place him on Eliquis post op? Requesting whatever Dr. Prieto recommends be filled out on the form sent and BLAS Bernstein will be the one that receives the information. Will discuss with Dr. Prieto. Heather Byres RN January 29, 2022 2:30 PM Returned call to BLAS Bernstein. No answer. Left VM to call office to discuss. Heather Byers RN January 29, 2022 2:16 PM BLAS Bernstein from [facility] called back and please call him at [phone] cell phone. Call placed to [facility] surgical coordination line- no answer. Left VM on confidential line: Per Dr. 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 Currently on aspirin 325mg daily. My recommendation is if ok w/ ortho, can they just bump down his aspirin instead of discontinuing it ... can they do the procedure on 81mg aspirin? If OK with decreasing ASA to 81 mg instead of discontinuing it for the procedure, Dr. Prieto will sign forms. May leave message with administrative staff with nursing unavailable. Heather Byers RN January 29, 2022 12:01 PM documented in this encounter [facility] Diagnosis Intracranial vascular stenosis- Primary Cerebrovascular disease, unspecified Palpitations Disturbance in sleep behavior Sleep disturbance, unspecified Essential hypertension Unspecified essential hypertension Mixed hyperlipidemia documented in this encounter [facility] Diagnosis Palpitation- Primary Palpitations documented in this encounter [facility] Diagnosis 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) Occlusion and stenosis of basilar artery with cerebral infarction Encounter for screening for cardiovascular disorders Screening for other and unspecified cardiovascular conditions documented in this encounter [facility] note* Diagnosis Paroxysmal atrial fibrillation (HCC)- Primary Atrial fibrillation documented in this encounter [facility] Reason for Referral Specialty Diagnoses / Procedures Referred By Contac t Referred To Contact CT IMAGING Diagnoses Encounter for screening for cardiovascular disorders Procedures CTA NECK W IVCON CT ANGIOGRAPHY NECK W/CONTRAST/NONCONTRAST Luis Eduardo Prieto MD [address] [place] [address] [address] [facility] [place] [address] Referral ID Status Reason Start Date Expiration Date Visits Requested Visits Authorized [id number] Authorized Auto-Generat ed Referral 04/22/2023 05/21/2024 1 1 Specialty Diagnoses / Procedures Referred By Contac t Referred To Contact CT IMAGING Diagnoses 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) Procedures CTA HEAD WO/W IVCON CT ANGIOGRAPHY HEAD W/CONTRAST/NONCONTRAST Luis Eduardo Prieto MD [address] [place] [address] [address] [facility] [place] [address] Referral ID Status Reason Start Date Expiration Date Visits Requested Visits Authorized [id number] Authorized Auto-Generat ed Referral 04/22/2023 05/21/2024 1 1 Referral ID Status Reason Start Date Expiration Date V isits Requested Visits Authorized [id number] Closed Auto-Generate d Referral 04/22/2023 05/21/2024 1 1 Referral ID Status Reason Start Date Expiration Date V isits Requested Visits Authorized [id number] Closed Auto-Generate d Referral 04/22/2023 05/21/2024 1 1 Specialty Diagnoses / Procedures Referred By Contac t Referred To Contact Cardiology Diagnoses Paroxysmal atrial fibrillation (HCC) Procedures CONSULT TO CARDIOLOGY OFFICE/OUTPATIENT NEW HIGH MDM 60-74 MINUTES Kia Monae APRN.CARDIOPULMONARY PHYSICAL THERAPIST [address] [place] [address] Referral ID Status Reason Start Date Expiration Date Visits Requested Visits Authorized [id number] Authorized PCP Requested Referral 3 06/23/2024 1 1 Summary Purpose Family History No Family History Records Found Advance Directives No Advanced Directives Records Found Additional Source Comments Source Comments (unrecognize d section and content) In the event this informatio n is protected by the Federal Confidentiality of Alcohol and Drug Abuse Patient Records regulations: The Federal rules restrict any use of the information to criminally investigate or prosecute any alcohol or drug abuse patient.[facility] the event this information is protected by the Federal Confidentiality of Alcohol and Drug Abuse Patient Records regulations: The Federal rules restrict any use of the information to criminally investigate or prosecute any alcohol or drug abuse patient.[facility] the event this information is protected by the Federal Confidentiality of Alcohol and Drug Abuse Patient Records regulations: The Federal rules restrict any use of the information to criminally investigate or prosecute any alcohol or drug abuse patient.[facility] the event this information is protected by the Federal Confidentiality of Alcohol and Drug Abuse Patient Records regulations: The Federal rules restrict any use of the information to criminally investigate or prosecute any alcohol or drug abuse patient.[facility] the event this information is protected by the Federal Confidentiality of Alcohol and Drug Abuse Patient Records regulations: The Federal rules restrict any use of the information to criminally investigate or prosecute any alcohol or drug abuse patient.[facility] the event this information is protected by the Federal Confidentiality of Alcohol and Drug Abuse Patient Records regulations: The Federal rules restrict any use of the information to criminally investigate or prosecute any alcohol or drug abuse patient.[facility] the event this information is protected by the Federal Confidentiality of Alcohol and Drug Abuse Patient Records regulations: The Federal rules restrict any use of the information to criminally investigate or prosecute any alcohol or drug abuse patient.[facility] the event this information is protected by the Federal Confidentiality of Alcohol and Drug Abuse Patient Records regulations: The Federal rules restrict any use of the information to criminally investigate or prosecute any alcohol or drug abuse patient.[facility] the event this information is protected by the Federal Confidentiality of Alcohol and Drug Abuse Patient Records regulations: The Federal rules restrict any use of the information to criminally investigate or prosecute any alcohol or drug abuse patient.[facility] the event this information is protected by the Federal Confidentiality of Alcohol and Drug Abuse Patient Records regulations: The Federal rules restrict any use of the information to criminally investigate or prosecute any alcohol or drug abuse patient.[facility] the event this information is protected by the Federal Confidentiality of Alcohol and Drug Abuse Patient Records regulations: The Federal rules restrict any use of the information to criminally investigate or prosecute any alcohol or drug abuse patient.[facility] Reason for Visit (unrecogniz ed section and content) Reason Comments Follow Up Reason Comments 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 Reason Comments Radiology CT Specialty Diagnoses / Procedures Referred By Contac t Referred To Contact CT IMAGING Diagnoses 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) Procedures CTA HEAD WO/W IVCON CT ANGIOGRAPHY HEAD W/CONTRAST/NONCONTRAST Luis Eduardo Prieto MD [address] [place] [address] Ct [facility] [place] [address] Referral ID Status Reason Start Date Expiration Date V isits Requested Visits Authorized [id number] Closed Auto-Generate d Referral 04/22/2023 05/21/2024 1 1 Care Teams (unrecognized sec tion and content) Human Resource Analyst Relationship Specialty Start Date End Date Chase Argueta MD [address] [place] [address] PCP - General Family Medicine 09/07/21 Human Resource Analyst Relationship Specialty Start Date End Date Chase Argueta MD [address] [place], [place] [id number] PCP - General Family Medicine 09/07/21 Human Resource Analyst Relationship Specialty Start Date End Date Chase Argueta MD [address] [place] [id number] PCP - General Family Medicine 09/07/21 Human Resource Analyst Relationship Specialty Start Date End Date Chase Argueta MD [address] [place] [address] PCP - General Family Medicine 09/07/21 Human Resource Analyst Relationship Specialty Start Date End Date Chase Argueta MD [address] [place] [id number] PCP - General Family Medicine 09/07/21 Human Resource Analyst Relationship Specialty Start Date End Date Chase Argueta MD [address] [place] [id number] PCP - [facility] Medicine 09/07/21 Human Resource Analyst Relationship Specialty Start Date End Date Chase Argueta MD [address] [place], [place] [id number] PCP - General [facility] Medicine 09/07/21 (unrecognized sect ion and content) No Status Records Found INFORMATION SOURCE (unrecogn ized section and content) FOR RECORDS PERTAINING TO PATIENTS WHO ARE OR HAVE BEEN ENROLLED IN A CHEMICAL DEPENDENCY/SUBSTANCEABUSE PROGRAM, SOME INFORMATION MAY BE OMITTED. This clinical summary was aggregated from multiple sources. Caution should be exercised in using it in the provision of clinical care. This summary normalizes information from multiple sources, and as a consequence, information in this document may materially change the coding, format and clinical context of patient data. In addition, data may be omitted in some cases. CLINICAL DECISIONS SHOULD BE BASED ON THE PRIMARY CLINICAL RECORDS. [employer] [facility]. provides no warranty or guarantee of the accuracy or completeness of information in this document.
--- NOTE | 2023-08-09 07:06 | STRESSREP ---
Stress Test Report Exercise myocardial perfusion stress test. 73-year-old man with a history of chest pain Stress protocol: Resting EKG demonstrates sinus bradycardia with a rate of 57 bpm resting blood pressure is 138/82 mmHg. The patient exercised according to the regular [facility] protocol for a total duration of 6 minutes attaining a maximum heart rate of 131 bpm which was 89% of maximum predicted heart rate; the maximum workload was 7 metabolic equivalents. At rest there were no ST or T wave changes noted to suggest ischemia and at peak exercise upsloping ST changes only were noted which did not meet the criteria for ischemia. No clinical angina was noted the test was terminated due to the target heart rate being achieved/fatigue. The peak blood pressure was 188/68 mmHg. Rate-pressure product was 21,700. Myocardial perfusion protocol. 14.1 mCi of technetium 99m sestamibi was injected at rest. The patient exercised according to regular [facility] protocol for total duration of 6 minutes and at peak exercise 44.4 mCi of technetium 99m sestamibi was injected stress images were obtained stress and rest images were reconstructed in comparing the short axis vertical long and horizontal long axis. Gated images were also obtained. Perfusion SPECT analysis: Review of the stress images demonstrate normal uptake of tracer noted in all areas of the myocardium. The resting images similarly demonstrate normal uptake of tracer noted in all areas of the myocardium. No areas of reversibility are noted to suggest ischemia no previous infarct was noted. Gated SPECT analysis: The gated ejection fraction is 75%. Conclusion: Normal exercise myocardial perfusion stress test at a ordered workload Preserved ejection fraction.
== END | disposition home or self-care (01) ==
PROVIDERS: PCP Family Medicine; Referring Provider Nurse Practitioner Family; Visit Provider Nurse Practitioner Family
DX: R94.31 Abnormal electrocardiogram [ECG] [EKG] (principal); I47.29 Other ventricular tachycardia; I48.91 Unspecified atrial fibrillation; I49.49 Other premature depolarization; I10 Essential (primary) hypertension; E78.5 Hyperlipidemia, unspecified
CPT/HCPCS: 78452; 93017; A9500

== ENCOUNTER → 2023-11-17 | Outpatient (CLI) | payer MEDICARE, BC, SELFPAY | END | disposition home or self-care (01) | LOC: SL 20:07 | PROVIDERS: PCP Family Medicine; Referring Provider Nurse Practitioner Family; Visit Provider Nurse Practitioner Family | DX: G47.10 Hypersomnia, unspecified (principal) | CPT/HCPCS: 95810 ==

== ENCOUNTER → 2024-01-23 | Outpatient (CLI) | payer MEDICARE, BC, SELFPAY ==
[2024-01-23 11:36] LABS: Anion Gap 6 (5-15); BUN 15 mg/dL (7-18); BUN/Creat Ratio 14.3 RATIO (10-20); Calcium,Total 9.3 mg/dL (8.5-10.1); Chloride 110 mmol/L (98-107); Cholesterol 105 mg/dL (200); Creatinine, Serum 1.05 mg/dL (0.70-1.30); EST Glomerular Filtration Rate 74 mL/min (>60); Est Glom Filt Rate - Afr Amer 89 mL/min (>60); Glucose 112 mg/dL (74-106); High Density Lipoprotein 46 mg/dL; Potassium 4.4 mmol/L (3.5-5.1); Sodium Level 141 mmol/L (136-145); Triglycerides 68 mg/dL; Very Low Density Lipoprotein 14 mg/dL (5-40)
== END | disposition home or self-care (01) ==
LOC: MFPLAB 08:40
PROVIDERS: PCP Family Medicine; Visit Provider Family Medicine
DX: I65.1 Occlusion and stenosis of basilar artery (principal)
CPT/HCPCS: 36415; 80048; 80061

== ENCOUNTER → 2024-11-05 | Outpatient (CLI) | payer MEDICARE, BC, SELFPAY ==
[2024-11-05 10:38] LABS: Hematocrit 46.2 % (40-54); Hemoglobin 16.1 g/dL (13.0-16.5); Mean Corp Hgb Conc 34.8 g/dL (32-36); Mean Corpuscular Hgb 32.4 pg (27.0-32.0); Mean Platelet Vol. 10.8 fl (6.2-12.0); Platelet Count 189 K/mm3 (150-450); RBC Distribution Width CV 14.6 % (11.6-14.6); RBC Distribution Width SD 49.4 fl (35.1-43.9); Red Blood Count 4.97 M/mm3 (4.6-6.2); White Blood Count 10.4 K/mm3 (4.4-11.0)
[2024-11-05 11:18] LABS: ALB/GLOB Ratio 1.6 RATIO (0.9-2.4); AST(SGOT) 23 U/L (<=37); Alanine Aminotransfer ALT/SGPT 18 U/L (<=46); Albumin, Serum 4.2 g/dL (3.4-4.8); Alkaline Phosphatase 63 U/L (40-129); Anion Gap 13 (5-15); BUN 12 mg/dL (4-19); BUN/Creat Ratio 11.7 RATIO (10-20); Calcium,Total 9.2 mg/dL (7.6-11.0); Carbon Dioxide 21.5 mmol/L (21.0-32.0); Chloride 107 mmol/L (98-108); Cholesterol 113 mg/dL (<=200); Creatinine, Serum 1.06 mg/dL (0.70-1.20); EST Glomerular Filtration Rate 74 (>60); Globulin 2.7 g/dL (2.2-4.2); Glucose 102 mg/dL (70-99); High Density Lipoprotein 51 mg/dL; Low Density Lipoprotein Calc. 41 mg/dL; Potassium 4.3 mmol/L (3.3-5.1); Protein, Total 6.9 g/dL (5.9-8.4); Sodium Level 141 mmol/L (133-145); Total Bilirubin 1.05 mg/dL (0.00-1.30); Triglycerides 105 mg/dL; Very Low Density Lipoprotein 21 mg/dL (5-40); cholesterol:hdl ratio screen 2.21
== END | disposition home or self-care (01) ==
LOC: MTLAB 08:40
PROVIDERS: PCP Family Medicine; Referring Provider Family Medicine; Visit Provider Family Medicine
DX: Z12.5 Encounter for screening for malignant neoplasm of prostate (principal); K21.9 Gastro-esophageal reflux disease without esophagitis; I10 Essential (primary) hypertension
CPT/HCPCS: 36415; 80053; 80061; 84153; 85027; G0103